=== PATIENT | female | born 1990 | race Caucasian/White ===

== ENCOUNTER 2017-06-10 00:39 | Inpatient (IN) | payer OTHER ==
[2017-06-10] VITALS (10 sets, daily range): BP systolic 88–138; BP diastolic 44–109; PULSE 105–140; RESP 28–46; O2SAT 91–97
[~2017-06-10] VITALS: Ht 162.6 cm; Wt 74.1 kg
[2017-06-10] MEDS ORDERED: 0.9% Sodium Chloride 1,000 ML IV ONE ×2 (01:25)
[2017-06-10] MEDS ORDERED: levoFLOXacin Inj 750 MG in IV Premix 1 EACH IV ONE (01:35)
[2017-06-10] MEDS ORDERED: Vancomycin Inj 1,500 MG in 0.9% Sodium Chloride 500 ML IV ONE (01:35)
[2017-06-10] MEDS ORDERED: Vancomycin Dose per Pharmacist XX ONE ×2 (01:35→04:05)
[2017-06-10] MEDS ORDERED: Piperacillin-Tazo 3.375 Gm Inj 3.375 GM in Dextrose 5% Minibag Plus 50 ML IV ONE (01:35)
[2017-06-10] MEDS ORDERED: HYDROmorphone 1 mg/mL Inj IVPUSH ONE ×2 (01:40→02:25)
[2017-06-10] MEDS ORDERED: HYDROmorphone 0.5 mg/0.5 mL iSecure Syringe IVPUSH ONE ×2 (01:40→02:25)
[2017-06-10 01:45] LABS: EOSINOPHILS % (AUTO) 0 % (0-5); Mean Corpuscular Hemoglobin 27.3 pg (27.0-35.0); Mean Corpuscular Volume 77.7 fL (81-100); Platelet Count 113 bil/L (150-400)
--- NOTE | 2017-06-10 02:05 | ED.REPORT ---
HPI-Dyspnea / Wheezing Date of Service Jun 10, 2017 ED Provider: Brenden Upton MD Pt is a 27 year old female with a hx of pneumonia, heart murmur and IV drug abuse presenting to the ED complaining of SOB and pain with inspiration onset 1 week ago progressively worsening. Associated symptoms include diffuse back pain , a fever, diaphoresis, chills, and a productive cough. Denies nausea or vomiting. The pain is exacerbated by movement. Pt has been living out of her car for the past little while. She denies being on antibiotics recently. Nursing Notes Stated Complaint: BACK PAIN,FEVER, DIFFICULT TO BREATH Chief Complaint: FLU/Cold Symptoms Nursing Notes Reviewed: Yes ([employer], meds not reconciled) Allergies: Coded Allergies: No Known Allergies (Unverified Allergy, Unknown, 06/10/17) General Time Seen by MD: 01:24 Chief Complaint Shortness of breath Hx Obtained From: Patient Arrived By: Walk-in Sudden in Onset?: No Onset Occurred: 1 week ago Symptom Duration: Since onset Location: : Back: Chest left: Chest right Quality: Painful Severity: Current: Severe Severity: Maximum: Severe Recent Healthcare: No recent doctor visit, No recent hospitalization Similar Sx Previous: No Past Medical History Past Medical History IVDA Pneumonia in the past Heart murmur Reports: Heroin use Past Surgical History denies Smoking History Current Every Day Smoker Social History Drug Use: IV drugs Ambulatory Status Independent Review of Systems Pain with inspiration. Constitutional: Reports: Chills, Fever Respiratory: Reports: Prod cough, clear, Shortness of breath Cardiovascular: Reports: Chest pain Musculoskeletal: Reports: Back pain Complete sys rev & neg: except as marked. GI: Denies: Nausea, Vomiting Physical Exam Initial Vital Signs Vital Signs (First) Date Time Temp Pulse Resp B/P Pulse Ox O2 Delivery O2 Flow Rate FiO2 06/10/17 00:41 37.8 140 28 120/82 91 Room Air Initial VS: Reviewed, Vital signs abnormal Head / Eyes: Atraumatic, Normocephalic, PERRL ENT: Mucous membranes moist, Conjunctiva normal, No scleral icterus Abdomen / GI: Soft, Non-tender, No guarding, No rebound, No distention Neurologic: Alert, Oriented, Nonfocal Psychiatric: Mood/affect normal, Behavior normal, Normal thought content General/Constitutional: Awake, Alert Distress / Hydration: Positive: Distress severe Appearance / Presentation: Positive: Cachectic, Pale Clinically ill, shaking with rigors. No clinical signs of intoxication or withdrawal. Neck: Atraumatic, Supple Respiratory / Chest: Atraumatic Tachypnic and dyspneic, taking short breaths. Scattered rhonchi. Cardiovascular: Regular rhythm Tachypnea and dyspnea are so that I am not able to hear her heart tones, although she does report that she has a murmur Skin: Warm, Dry, Intact Track de león upper and lower extremities. No signs of abscess. No splinter hemorrhages or Osler. Interpretation & Diagnostics Lab Results Interpretation Result Diagram: 06/10/17 0141 06/10/17 0141 Test 06/10/17 01:41 White Blood Count 12.3th/mm3 (3.8-10.1) Red Blood Count 3.55mil/mm3 (3.90-5.20) Hemoglobin 9.7g/dL (12.0-15.6) Hematocrit 27.6% (35.0-46.0) Mean Corpuscular Volume 77.7fL (81-100) Mean Corpuscular Hemoglobin 27.3pg (27.0-35.0) Mean Corpuscular Hemoglobin Concent 35.1% (32.0-37.0) Red Cell Distribution Width 17.1% (12.3-15.4) Platelet Count 113bil/L (150-400) Neutrophils (%) (Auto) 81% (40-74) Lymphocytes (%) (Auto) 7% (14-46) Monocytes (%) (Auto) 8% (4-12) Eosinophils (%) (Auto) 0% (0-5) Basophils (%) (Auto) 0% (0-3) Band Neutrophils % 4% (1-5) Hematology Comments Sodium Level 129mEq/L (134-144) Potassium Level 4.5mEq/L (3.5-5.2) Chloride Level 90mEq/L (97-108) Carbon Dioxide Level 22mmol/L (18-29) Blood Urea Nitrogen 20mg/dL (6-20) Creatinine 0.39mg/dL (0.57-1.00) Estimat Glomerular Filtration Rate 278mL/min (>59) Glucose Level 121mg/dL (60-99) Lactic Acid Level 1.3mmol/L (0.4-2.0) Calcium Level 8.1mg/dL (8.5-10.1) Magnesium Level 1.9mg/dL (1.6-2.6) Total Bilirubin 1.0mg/dL (0.0-1.2) Aspartate Amino Transf (AST/SGOT) 30U/L (0-50) Alanine Aminotransferase (ALT/SGPT) 8U/L (0-32) Alkaline Phosphatase 130U/L (25-150) Troponin T < 0.010ug/L (0.0-0.011) Total Protein 6.8g/dL (6.4-8.4) Albumin 2.4g/dL (3.4-5.0) Lab Results Interpretation: CBC positive leukocytosis, positive anemia CMP normal Lactic acid normal next and blood cultures 2 pending ECG Interpretation ECG Interpretation: Sinus tachycardia with a rate of 146. Non specific repolarization abnormality. Time: 01:24 Interpreted by: ED physician X-Ray Chest Interpretation Chest Xray Interpretation: Multi focal lesions concerning for multi focal pneumonia. View: Portable, 1 view Interpretation / Wet Read by: Wet read ED physician Procedures Central Line Placement Central Line Placement Note: line secured at 16 cm Time: 03:12 Procedure Performed by: ED physician Consent / Setup / Site Prep: Informed consent provided, Time-out performed, Oxygen administered, Pulse oximeter applied, monument setter helper applied, Hand hygiene observed, Standard surgical scrub, Max barrier precaution, Sterile drapes applied Skin Preparation Agent: Hibiclens - Chlorhexidine Local Anesthesia: Lidocaine 1% Side / Location / Ultrasound: Subclavian right Catheter / Lumen / Technique: Triple lumen, Seldinger technique, Good blood return, Secured w catheter device (STATLOCK) Central Line Tip Location: Cath tip good position in the SVC (16cm) Post-Procedure / Complications: Dressing placed, Condition improved, Tolerated procedure well, Patient stable Re-Eval/Medical Decision Med Decision/Clinical Course This is a 27-year-old female history of IV drug abuse who presents with chest discomfort cough, fever, chills, body aches and worsening over the past week. On arrival she is floridly septic, febrile, tachycardic, slightly low O2 sat, and appears quite ill. Chronic heart murmur, S few scattered rhonchi and I cannot really appreciate heart murmur on clinical exam as a result. She has no splinter hemorrhages or os nodes. She appears very uncomfortable and appears severely ill. No rash or exanthem or abscess is evident, but she does have track de león throughout. X-ray reveals multilobar pneumonia, presentation is highly concerning for bacteremia and the possibility of endocarditis is also present. Blood revealed e moderate leukocytosis, anemia-both also concerning for possible endocarditis. Broad-spectrum sepsis antibiotics are being initiated. The patient received multiple titrated pain medicine renal function being normal she received Tylenol, Tylenol, and IV fluids. She is clinically ill to the point that I recommended she see admission, and they have ultimately requested that I go ahead and place proactive central line. So ultimately this was done. Informed consent was obtained from the patient, under sterile conditions following routine precautions right subclavian triple-lumen was placed to 16 cm on the first pass following lidocaine analgesia and a chlorhexidine prep. Again the line was obtained on the first pass without any difficulty, follow-up chest x-ray demonstrates a minor adequate position with no calm location. Procedure was well tolerated. An echocardiogram for the morning as been obtained. Case is discussed with the hospitalist, ID consultation can also be obtained in the morning. Source of Hx: Old records Re-Evaluation/Progress : Time of Eval: 01:37 Patient Status: Condition improved Re-Evaluation/Progress Note: Discussed plan for admission. Pt understands and agrees with plan. Consultation : Referral / Consult Name: Cayetano Kincaid MD Consulted With: Hospitalist Call Returned at: 02:40 Typewriter Aligner: Will see patient, Agrees with plan, Accepts admit Differential Diagnosis: Positive: Pneumonia, Negative: COPD exacerbation, Cardiogenic shock, Foreign body airway, Inhalation injury Counseled Regarding: Diagnosis, Lab results, Need for admission Discharge & Departure Departure Notes r/o endocarditis Impression: Primary Impression: Sepsis Sepsis type: sepsis due to unspecified organism Qualified Code: A41.9 - Sepsis, unspecified organism Additional Impressions: Pneumonia Pneumonia type: due to unspecified organism Laterality: bilateral Lung location: unspecified part of lung Qualified Code: J18.9 - Pneumonia, unspecified organism IVDU (intravenous drug user) Disposition: ADMITTED TO HOSPITAL Discharge Condition All VS Reviewed: Yes Condition: Improved Referrals: Raffi Bonner MD (PCP) Crit Care Except Billable Proc Time Spent: 30-74 minutes Services Performed: Patient management by me, Time spent at bedside, Reviewing test results, Reviewing imaging, Discussing patient care, Documentation in record Scribe Attestation Portions of this note were transcribed by Irina Mead. I, Dr. Upton personally performed the history, physical exam and medical decision-making; I reviewed and confirmed the accuracy of the information in the transcribed note. Signed by: Salomon Lance, 06/10/2017. copies to: Raffi Bonner MD, Matthew F MD Jun 10, 2017 02:05 IRINA MEAD Jun 10, 2017 02:12 Jun 10, 2017 03:07
[2017-06-10 02:11] LABS: NEUTROPHILS % (AUTO) 81 % (40-74)
[2017-06-10 02:12] LABS: BASOPHILS % (AUTO) 0 % (0-3); MONOCYTES % (AUTO) 8 % (4-12)
[2017-06-10 02:32] LABS: Magnesium 1.9 mg/dL (1.6-2.6); TROPONIN T < 0.010 ug/L (0.0-0.011)
[2017-06-10] MEDS: HYDROmorphone 1 mg/mL Inj IVPUSH PRN ×3 (03:10→03:31)
[2017-06-10] MEDS ORDERED: HYDROmorphone 1 mg/mL Inj IVPUSH PRN (03:40)
[2017-06-10] MEDS ORDERED: Ondansetron 2 mg/mL 2 mL Inj IVPUSH PRN (04:05)
--- NOTE | 2017-06-10 04:20 | PCM.HPMED ---
Subjective Date of Service Jun 10, 2017 Primary Provider: Admitting Physician: Cayetano Kincaid MD Primary Care Physician: Raffi Bonner MD Attending Physician: Cayetano Kincaid MD Admit Status: From the Emergency Department Chief Complaint: Fever and chills with SOB and pain with inspiration History of Present Illness: Christa Buckner is a 27 year old woman with a PMH of heart murmur, chronic back pain with prior incomplete workup for MS, and Heroine use who presents to the ED with a 1-2 week history of increasing SOB with associated fevers and chills. The patient reports that for the past few weeks she has been living out of her car, and that after a long period of sobriety has relapsed back into heroine. She states that she has been exclusively injecting into the gluteus muscle and denies IVDU though there do appear to be track de león on her antecubital area. She denies nausea, vomiting, diarrhea, pain in her legs, hemoptysis, substernal chest pain, sick contacts, or pain at her injection sites. In the ED the patient was found to have low grade leukocytosis, mild anemia, a CXR indicative of pneumonia, and hypotension responsive to Fluids. She is in the process of trying to get a hold of her family to improve her living situation and get clean. She acknowledges that she probably should have sought medical attention at least a week ago. UTOX was positive for Opiates, Methamphetamine, TCAs, and Upreg was negative. Review of Systems: Comprehensive ROS negative except as listed above in the HPI. 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 Pneumonia Congenital heart murmur Heroin use Surgical History Inguinal hernia repair as a child Family History Father with multiple medical problems including DM, HTN, and CAD Social History Hx Alcohol Use: Yes Hx Substance Use: Yes (heroin) Smoking Status: Current Every Day Smoker Exam Vital Signs Vital Sign - Last Date Time Temp Pulse Resp B/P Pulse Ox O2 Delivery O2 Flow Rate FiO2 06/10/17 03:38 131 46 97/72 91 Nasal Cannula 3 06/10/17 00:41 37.8 Exam Gen: A/O x3 ill appearing young woman in moderate acute distress secondary to pain and fever Neck: Supple, Full ROM, no lymphadenopathy HEENT: PERRL, EOMI, no scleral icterus, no conjunctival pallor CV: Tachycardia with rate approx 120, regular rhythm, soft 2/6 systolic murmur best heard at right sternal border, no rubs or gallops Resp: Diffusely coarse breath sounds most focused in LLL, tachypnea, shallow breathing Abd: Soft, non tender, no rebound masses or guarding Extr: Track de león in upper and lower extremities, no calf or popliteal tenderness, no gluteal tenderness at reported injection site, no splinter hemorrhages or Osler nodes Neuro: CN 2-12 grossly intact, no focal neurologic deficit Psych: Patient is significant emotional and physical distress, expressing anxiety about hospitalization Lab and Diagnostics Labs Item Value Date Time Red Blood Count 3.55 mil/mm3 L 06/10/17140 Mean Corpuscular Volume 77.7 fL L 06/10/17140 Mean Corpuscular Hemoglobin 27.3 pg 06/10/17140 Mean Corpuscular Hemoglobin Concent 35.1 % 06/10/17140 Red Cell Distribution Width 17.1 % H 06/10/17140 Neutrophils (%) (Auto) 81 % H 06/10/17140 Lymphocytes (%) (Auto) 7 % L 06/10/17140 Monocytes (%) (Auto) 8 % 06/10/17140 Eosinophils (%) (Auto) 0 % 06/10/17140 Basophils (%) (Auto) 0 % 06/10/17140 Band Neutrophils % 4 % 06/10/17140 Estimat Glomerular Filtration Rate 278 mL/min 06/10/17140 Lactic Acid Level 1.3 mmol/L 06/10/17140 Calcium Level 8.1 mg/dL L 06/10/17140 Magnesium Level 1.9 mg/dL 06/10/17140 Total Bilirubin 1.0 mg/dL 06/10/17140 Alkaline Phosphatase 130 U/L 06/10/17140 Alanine Aminotransferase (ALT/SGPT) 8 U/L 06/10/17140 Troponin T < 0.010 ug/L 06/10/17140 Total Protein 6.8 g/dL 06/10/17140 Albumin 2.4 g/dL L 06/10/17140 Result Diagram: 06/10/1714006/10/17140 Microbiology Blood cultures pending Sputum cultures pending(note sputum culture was obtained after initiation of Abx in the ED) Urinalysis with reflex cultures pending X-Rays, CTs and MRIs Official read pending: Multifocal opacities suspicious for pneumonia 12-lead ECG Sinus Tachycardia with non specific repolarization abnormalities Assessment & Plan Christa Buckner is a 27 year old woman with a history of Heroin use currently living out of her car who presents with a 1-2 week history of increasing SOB, fevers and chills. She was admitted with Sepsis with likely pulmonary source and possible endocarditis. Sepsis, POA, acute. Active -Upon presentation patient with leukocytosis, tachycardia, tachypnea, fever, and likely pulmonary source -Cannot rule out endocarditis at the moment, this is a concern given drug use and anemia -Empiric Vanco, Zosyn, and Levofloxacin -ID consult in the AM -ECHO in the AM -Blood cultures x2 drawn prior to Abx, 2 more ordered given possibility of endocarditis or staph bacteremia -Sputum cultures drawn post Abx -MRSA screen pending -S.pneumo and legionella urine antigen pending -Initial Lactic Acid normal, will repeat -Patient hypotensive but responsive to fluid, will consider pressor if fluid proves inadequate to control pressure Possible Endocarditis, POA, acute. Active -Empiric antibiotics as above -Patient with congenital heart murmur -Patient claims to be exclusively muscling though there are track de león in upper and lower extremities -ECHO pending -Blood cultures pending Community acquired pneumonia, POA, acute. Active -Empiric antibiotics as above, will narrow with more culture data -IVF as above -Will repeat CXR tomorrow -Sputum culture and urine antigens pending Polysubstance abuse, POA, acute on chronic. Active -Patient states that she only recently relapsed after a long period of sobriety -As above patient claims to be exclusively muscling, but has track de león in upper and lower extremities -Patient claims to be exclusively using heroin, UTOX indicative of Meth and TCAs as well as Heroin -Social work referral for substance abuse counseling Chronic back Pain, POA. Active -Patient reports this is a longstanding issue -Prior history of incomplete workup for MS -Gabapentin has been effective for her in the past, will give 300 TID -Dilaudid PO for breakthrough pain and to avoid potential opiate withdrawal in acute phase of illness -Given the nature of her infection there is concern for epidural abscess, will defer to ID for decision whether or not to proceed with MRI Patient Status: Inpatient, anticipated length of stay > 2 midnights due to severity of condition and complexity of treatment plan. Pain Evaluation: Adequate Pain Control GI Prophylaxis: H2 demetrio VTE Prophylaxis: Sub-Q Enoxaparin Resuscitation Status: CPR: Attempt Resuscitation Time spent 50 minutes critical care time spend Attending Statement The patient was seen and examined together with Dr. Shankar on 06/10 and I agree with the history, exam and plan as outlined in the note above. Nilo Shankar DO Jun 10, 2017 04:20 Cayetano Kincaid MD Jun 10, 2017 06:57
[2017-06-10 04:40] LABS: APPEARANCE,URINE CLOUDY (CLEAR,HAZY); COLOR,URINE DARK YELLOW (YELLOW); OCCULT BLOOD,URINE TRACE (NEGATIVE); PH,URINE 5.5 (5.0-8.0)
[2017-06-10] MEDS: 0.9% Sodium Chloride 1,000 ML IV SCH ×9 (04:55→20:45)
[2017-06-10] MEDS ORDERED: Norepinephrine 8,000 mCg/250 mL NS Premix IV ONE (04:58)
--- NOTE | 2017-06-10 05:17 | PCM.CONPHA ---
Subjective Date of Service: Jun 10, 2017 Requesting Provider: Nilo Shankar DO Fever and chills with SOB and pain with inspiration Reason for Pharmacy Consult: Vancomycin Dosing Objective Vital Signs Date Time Temp Pulse Resp B/P Pulse Ox O2 Delivery O2 Flow Rate FiO2 06/10/17 04:43 128 34 97/44 92 Nasal Cannula 3 06/10/17 04:40 36.9 127 42 88/45 91 Nasal Cannula 3.00 06/10/17 03:38 131 46 97/72 91 Nasal Cannula 3 06/10/17 02:29 140 29 117/57 91 06/10/17 00:41 37.8 140 28 120/82 91 Room Air Weight (Kilograms): 68.18 Height (Feet): 5 Height (Inches): 4 Test 06/10/17 01:41 06/10/17 04:15 White Blood Count 12.3th/mm3 (3.8-10.1) Red Blood Count 3.55mil/mm3 (3.90-5.20) Hemoglobin 9.7g/dL (12.0-15.6) Hematocrit 27.6% (35.0-46.0) Mean Corpuscular Volume 77.7fL (81-100) Mean Corpuscular Hemoglobin 27.3pg (27.0-35.0) Mean Corpuscular Hemoglobin Concent 35.1% (32.0-37.0) Red Cell Distribution Width 17.1% (12.3-15.4) Platelet Count 113bil/L (150-400) Neutrophils (%) (Auto) 81% (40-74) Lymphocytes (%) (Auto) 7% (14-46) Monocytes (%) (Auto) 8% (4-12) Eosinophils (%) (Auto) 0% (0-5) Basophils (%) (Auto) 0% (0-3) Band Neutrophils % 4% (1-5) Hematology Comments Sodium Level 129mEq/L (134-144) Potassium Level 4.5mEq/L (3.5-5.2) Chloride Level 90mEq/L (97-108) Carbon Dioxide Level 22mmol/L (18-29) Blood Urea Nitrogen 20mg/dL (6-20) Creatinine 0.39mg/dL (0.57-1.00) Estimat Glomerular Filtration Rate 278mL/min (>59) Glucose Level 121mg/dL (60-99) Lactic Acid Level 1.3mmol/L (0.4-2.0) Calcium Level 8.1mg/dL (8.5-10.1) Magnesium Level 1.9mg/dL (1.6-2.6) Total Bilirubin 1.0mg/dL (0.0-1.2) Aspartate Amino Transf (AST/SGOT) 30U/L (0-50) Alanine Aminotransferase (ALT/SGPT) 8U/L (0-32) Alkaline Phosphatase 130U/L (25-150) Troponin T < 0.010ug/L (0.0-0.011) Total Protein 6.8g/dL (6.4-8.4) Albumin 2.4g/dL (3.4-5.0) Procalcitonin 1.84ng/mL (0.00-0.08) Urine Color Dark yellow (YELLOW) Urine Appearance Cloudy (CLEAR,HAZY) Urine pH 5.5 (5.0-8.0) Urine Specific [place] 1.015 (1.003-1.035) Urine Protein 30mg/dL (NEG,TRACE) Urine Glucose (UA) Negativemg/dL (NEGATIVE) Urine Ketones 15mg/dL (NEGATIVE) Urine Occult Blood Trace (NEGATIVE) Urine Nitrite Positive (NEGATIVE) Urine Bilirubin Negative (NEGATIVE) Urine Urobilinogen 1.0mg/dL (NORMAL) Urine Leukocyte Esterase Trace (NEGATIVE) Urine RBC 0-2/hpf (0-2) Urine WBC 6-10/hpf (0-5) Urine Epithelial Cells Few/hpf (NONE-MOD) Urine Crystals None seen (NONE SEEN) Urine Bacteria Moderate/hpf (NONE-FEW) Urine Hyaline Casts None/lpf (NONE) Urine Granular Casts None seen (NONE SEEN) Urine Waxy Casts None seen (NONE SEEN) Urine Red Blood Cell Casts None seen (NONE SEEN) Urine White Blood Cell Casts None seen (NONE SEEN) Urine Mucus None seen (None Seen) Urine Trichomonas None seen (NONE SEEN) Urine Yeast None (NONE SEEN) Urinalysis Comment None Urine Culture Reflexed Indicated Assessment/Plan Assessment/Plan A: * Vancomycin dosing by pharmacy for 27 y/o woman with sepsis, possible endocarditis, and CAP * She was given a vancomycin 1500 mg IV loading dose in the ED * The patient is also being started on Levaquin and Zosyn * Estimated CrCl for this patient is 120 mL/min (Cockcroft & Gault) * Estimated vancomycin half-life is 7 hours and estimated volume of distribution is 48 liters P: * Start vancomycin 1000 mg IV every 8 hours * Target a vancomycin trough in the range of 15 - 20 mcg/mL * Draw a trough level prior to the fourth dose Thank you. Pharmacy will continue to follow this patient. Sanam Lovell Jun 10, 2017 05:17
--- NOTE | 2017-06-10 06:25 | NUR ---
Admission Pt admitted to CCU room 201506/10/17 at 0450 this morning. Pt transported herself from the stretcher to the hospital bed by herself. Right Triple IJ CVC intact and infusing NS bolus, Vancomycin Abx. Pt hypotensive upon arrival, tachypnic, tachycardic, SpO2 85% on RA, moaning in pain 9/10 in her low back. Pt has bruises/de león all over her body from "muscling heroine" .Pt states last use was today and that she lives in her car and that a friend drove her car to help her get to the hospital. Norepinephrine gtt started to maintain MAP >65 after patient received a total of 5L NS fluid administration for hypotension. Fluid administration now at maintainance rate of 150ml/hour. MRSA swab and viral swab collected and sent to micro department.
[2017-06-10] MEDS: HYDROmorphone 0.5 mg/0.5 mL iSecure Syringe IVPUSH PRN ×4 (07:53→21:58)
[2017-06-10] MEDS ORDERED: Piperacillin-Tazo 3.375 Gm Inj 3.375 GM in Dextrose 5% Minibag Plus 50 ML IV SCH (08:30)
[2017-06-10] MEDS ORDERED: Vancomycin Dose per Pharmacist XX SCH (08:30)
--- NOTE | 2017-06-10 09:57 | CONS ---
[address] [address] CONSULTATION REPORT PATIENT: BLADIMIR SPENCER : 1990 MR#: [id number] ADMIT: 06/10/2017 JOB ID: [id number] INFECTIOUS DISEASE CONSULTATION: DATE OF SERVICE: 06/10/[address] Wilhelm for this timely consult. REASON FOR CONSULTATION: Septic shock in young, injection drug user. HISTORY OF PRESENT ILLNESS: The patient is a 27-year-old woman with scant past medical history. She knows that she had a heart murmur in the past and was told that she was infected with, but spontaneously resolved, hepatitis C. She also tells us she was hospitalized at [facility] a couple years ago, but has no recollection of why and we will need to obtain those records. She reports that she stopped using intramuscular heroin about two months ago and was clean for 60 days. She then developed the insidious onset of back pain which she initially describes as lumbar; though today, she seems indicated it is also higher in the back as well. Because of the back pain during this period of heroin abstinence, she started to inject IM heroin about a week ago for pain relief. These injections were into her right buttock. Subsequent to that, the patient started to develop gradually worsening shortness of breath. This was in association with a dry cough, headache, fever, chills and generalized malaise. The patient resides in a car and she tells us that in recent days, she has been too weak and short of breath to even get out of the car. 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 The lovelace parts of the history seem to be the onset of back pain a couple weeks ago which led to the relapse reportedly of her IM heroin use and then increasing shortness of breath with fever and chills for about the past week. Through this, she has had fairly minimal headache. No sore throat. No pain in the neck. No abdominal pain, nausea, vomiting, diarrhea, or dysuria nor any pain in the extremities. There has been no significant pain at the injection site in her buttocks. PAST MEDICAL HISTORY: 1. Heart murmur since childhood, by her report. 2. Hep C, reportedly spontaneously cured. 3. 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 SOCIAL HISTORY: The patient currently lives alone in her car. She is contemplating a move to [place] to have a more stable environment. She nonetheless is a lifelong resident of [facility], had been born here. She has had no exotic travel or exposures. She does smoke cigarettes, albeit not many. She does not drink alcohol. She uses methamphetamine and obviously heroin. FAMILY HISTORY: Negative for tuberculosis in first or second-degree relatives. REVIEW OF SYSTEMS: The patient has minimal headache. No visual complaints. No sore throat; though, she notes that her secretions or mucus is very thick because she is dehydrated. She has no stiff neck. No particular pain in the neck. She has pain both in her upper back, as well as her low back. The low back pain has been present for a couple of weeks, upper back much more recently. She is having considerable difficulty breathing and is very short of breath. She reports some pain with inspiration behind the sternum basically, but no unilateral pleuritic chest pain. She has minimal sputum production, if any, and is not really coughing much despite her profound shortness of breath. No nausea, vomiting, diarrhea, or abdominal pain. No dysuria, urgency, or frequency. No swelling of the joints. No notable skin rash. Remainder of the review of systems is negative. PHYSICAL EXAMINATION: Reveals a young woman who is struggling to breathe. Her current temperature is 36.7 earlier, but in the ED she was 37.8, so she has been afebrile. Pulse is currently 130 sinus tachycardia, respiratory rates 30-40 and very difficult respiratory status. She is not coughing however. Blood pressure is approximately 89/49, and that is supported by norepinephrine in moderate doses at about 0.1 mcg/kg/minute. She is saturating reasonably well, but requiring 5 L of nasal oxygen at this point. Examination of the head reveals no trauma or temporal wasting. Sinuses nontender. Eyes without conjunctivitis. Nose appears normal. Oral cavity has a lot of thick whitish mucus, but I did not see any logan candidiasis nor does she have pharyngitis or hairy leukoplakia. Her neck is supple. There is no tenderness along the sternocleidomastoid muscles as would be consistent with Lemierre's syndrome. Examining her back, she is diffusely tender when we sit her up and carefully press on each spine. This tenderness seems most pronounced at about C7 and again in the lumbar spine, but her whole spine seems somewhat tender. Auscultating her anteriorly and posteriorly, we hear scattered rales and rhonchi with really reduced air flow bilaterally surprisingly. Cardiac tones are very tachycardic, difficult to appreciate any murmur at this rate. Abdomen is completely soft, nontender. No organomegaly. No ascites. No suprapubic tenderness. She does have a Maya catheter. No external genital lesions are seen. Her extremities are free of edema. No synovitis. Excellent peripheral pulses, 5/5 strength throughout. She has an IV in her right IJ. LABORATORY DATA: Labs include a white count of 12,300, with left shift. Creatinine 0.39. Liver function tests normal. First procalcitonin 1.84. Albumin a bit low at 2.4. Urinalysis 6-10 white cells. Urine Legionella and pneumococcal urine antigens are pending. Blood cultures were just done seven hours ago and, of course, are negative so far. Nasal MRSA smear is pending. Urine culture is pending, though I am not sure why, as she has no symptoms. IMAGING PROCEDURE: Chest x-rays were carefully reviewed. Her chest x-ray shows scattered bilateral infiltrates and I sense that there may be some nodularity to this which could be consistent with septic pulmonary emboli from endocarditis and/or septic emboli from Lemierre's or some similar process. This could also represent, I suppose, just fluid overload or pulmonary edema. These are my impressions, although the chest x-ray has not been read yet by the radiologist. IMPRESSION: This patient is clearly critically ill at this point. She is on the edge of respiratory failure which will require intubation given her respiratory rate approaching of 40 and just profound dyspnea. In conjunction with this, she is in shock requiring moderately high doses of norepinephrine to support a physiologic blood pressure. The differential diagnosis for her septic shock and respiratory difficulty revolves around one of three or so possibilities. It is possible the patient is bacteremic and/or has endocarditis. It is likewise possible that she has more specifically right-sided endocarditis with septic pulmonary emboli. Lemierre's syndrome remains a possibility, though less likely because of the lack of tenderness in the neck. Also possible here would be a bacteremic infection of the back such as spinal epidural abscess or vertebral osteomyelitis with bacteremia. I do not see evidence at this point to suggest meningitis, sinusitis, any intra-abdominal infection, urinary tract infection or infection of the extremities. I failed to mention in the physical exam, but we carefully looked at the right buttock and there is bruising there consistent with injection, but absolutely nothing to concern one for soft tissue infection. RECOMMENDATIONS: 1. I agree with the multiple blood cultures which have been performed. 2. The patient has been started on vancomycin, Zosyn and levofloxacin in accordance with our protocol for septic shock and I see no problem with those agents at this point. 3. The patient's respiratory status will need to be very closely monitored as I suspect she will be intubated before the day is over unless the situation improves. 4. An echocardiogram is already pending and I agree with that. 5. I would workup possible pulmonary infiltrates with our usual studies which include the urine antigens, blood cultures, procalcitonin and MRSA screen, all of which is currently pending. 6. CT scan of the chest, preferably with contrast, should be done. This will allow us to better characterize these ill-defined infiltrates seen on the chest x-ray and if done appropriately, we can also evaluate for pulmonary embolism. As the patient tells us, for several days she has basically been sitting in a car. MRI scanning of the back would be reasonable, but there was no way the patient could tolerate that at this point, as she is literally struggling to breathe with a respiratory rate in the upper 30s to 40s and she cannot basically stay still. MRI scanning of the back would need to involve cervical, thoracic and lumbar scans and would likely take greater than one hour with the patient and the MRI tube and that would not be possible at this juncture. Should she develop positive blood cultures, we would need to make efforts, I believe, to perform such scanning, note that CT scanning of the back, to look for epidural abscess. It is specific, but not sensitive and prefer to get an MRI scan if at all possible as circumstances allow. 7. We should check her hep C antibody and hepatitis C viral load to confirm the story of spontaneously resolved hep C. 8. We should check hep B surface antigen, and HIV as part of health maintenance in this young woman. 9. We [facility] as the patient tells us she was hospitalized there two years ago, but cannot remember why. This may have a bearing on her current problems. Thank you very much for this consult.
--- NOTE | 2017-06-10 10:09 | DRSVH ---
PROCEDURE: X-RAY CHEST ONE VIEW, PORTABLE ([id number]) INDICATIONS: SHORT OF BREATH TECHNIQUE: One view of the chest was acquired. COMPARISON: None. FINDINGS: Surgical changes and devices: None. Lungs and pleura: No pleural effusions or pneumothorax. Lungs are abnormal with patchy alveolar inf iltration, with the patchy distribution having a rounded contour, each faintly marginated nodule havi ng a diameter of approximately 1-1.5 cm. Mediastinum: Mediastinal contours appear normal. Heart size is normal. Bones and chest wall: No suspicious bony lesions. Overlying soft tissues appear unremarkable. IMPRESSION: Septic emboli as the most likely etiology of the abnormality is discussed above. This is based on the information provided from the emergency room physician for this patient of SANG and deepa kelly. Dictated by: Sanjay Zeng M.D. on 06/10/2017 at 10:07 Approved by: Sanjay Zeng M.D. on 06/10/2017 at 10:08
[2017-06-10] MEDS ORDERED: Sodium Chloride LOK Flush 10 mL Syringe IVFLUSH PRN ×2 (10:10)
--- NOTE | 2017-06-10 10:15 | DRSVH ---
PROCEDURE: X-RAY CHEST ONE VIEW, PORTABLE ([id number]) INDICATIONS: CENTRAL LINE PLACEMENT TECHNIQUE: One view of the chest was acquired. COMPARISON: [facility], CR, XR CHEST 1VW (PORTABLE), 06/10/2017, 1:14. FINDINGS: Surgical changes and devices: Central line placed from right sided approach with tip overlying the ex pected region of the distal SVC considering reduced inspiration and patient rotation leftward. A pne umothorax is not found. Lungs and pleura: No pleural effusions or pneumothorax. Lungs are again seen to be abnormal with re duced inspiratory volume and patchy rounded radiodensities within the lung parenchyma highly suspicio us for representing septic emboli in the setting of IVDA and bacteremia. Mediastinum: Mediastinal contours appear normal. Heart size is normal. Bones and chest wall: No suspicious bony lesions. Overlying soft tissues appear unremarkable. IMPRESSION: Central line positioning normal, reduced inspiration, suspect septic emboli bilaterally w ithin the lung parenchyma. Dictated by: Sanjay Zeng M.D. on 06/10/2017 at 10:12 Approved by: Sanjay Zeng M.D. on 06/10/2017 at 10:14
[2017-06-10 10:25] LABS: BASOPHILS % (AUTO) 0.1 % (0-3); EOSINOPHILS % (AUTO) 0.2 % (0-5); MONOCYTES % (AUTO) 9.2 % (4-12); Mean Corpuscular Hemoglobin 27.4 pg (27.0-35.0); Mean Corpuscular Volume 78.2 fL (81-100); NEUTROPHILS % (AUTO) 85.2 % (40-74); Platelet Count 82 bil/L (150-400)
--- NOTE | 2017-06-10 10:56 | NUR ---
NUTRITION ASSESSMENT: ASSESS: Pt is a 27yo F admitted to CCU for sepsis and IVDA. She has been experiencing some respiratory difficulty and there is concern for endocarditis. ID is following. She is currently on a General diet. No PO recorded yet. PMHX: Perf esophagus, PNA, congenital heart murmur, IVD use, Hep C LABS: Reviewed. Na 129, Cl 90, product advisor .39, Glu 121, Ca 8.1, Alb 2.4 MEDS: Reviewed. Methadone, norepinephrine GI: 0 BM SKIN: no major issues CURRENT WTS: 68.7kg, BMI 26kg/m2, IBW: 54.5kg DIET: General EST. NEEDS: Kcals: 1720-2060kcal/day (25-30kcal/kg) Pro: 70-85g/day (1.0-1.2g/kg) NUTRITION DIAGNOSIS: 1.) No diagnosis at this time NUTRITION INTERVENTION: 1.) Will monitor PO intake. Pt does have a history of perforated esophagus so will monitor tolerance and possible need for ST eval MONITOR / EVAL: PO intake/tolerance, ST?, wt, gi, labs, POC, nutrition status. Will continue to monitor per moderate nutrition risk guidelines
[2017-06-10 10:58] LABS: Magnesium 1.6 mg/dL (1.6-2.6); Phosphorus 3.5 mg/dL (2.5-4.9)
--- NOTE | 2017-06-10 11:26 | PCM.PNMED ---
Subjective Date of Service Jun 10, 2017 Subjective She continues to be short of breath and have a lot of ongoing lumbar pain. Pain is bilateral without radiation. There is no leg weakness or numbness. She denies any abdominal pain or nausea. No real cough this morning. No hemoptysis. She denies any leg swelling. No diarrhea. Overnight events reviewed. Exam Vital Signs Vital Sign - Last Date Time Temp Pulse Resp B/P Pulse Ox O2 Delivery O2 Flow Rate FiO2 06/10/17 08:01 36.7 129 32 125/109 95 Nasal Cannula 5.00 Intake and Output 06/09/17 06/09/17 06/10/17 Cumulative From/Thru 15:00 23:00 07:00 06/10/17 00:41 - 06/10/17 06:19 Intake Total 2867 ml 2867 ml Output Total 50 ml 50 ml Balance 2817 ml 2817 ml Intake Oral 50 ml 50 ml IV Total 2817 ml 2817 ml Output Urine Total 50 ml 50 ml # Bowel Movements 0 0 Exam Alert and oriented -3, in moderate respiratory distress on high flow nasal cannula oxygen. Fluent speech. Anicteric sclera. Lungs are clear with increased regimen effort. Heart is regular without murmur gallop or rub, tachycardic Abdomen soft nontender, flat Extremities are free of edema. Skin is free of rash or lesions. Normal motor strength of lower extremities. IVs and Medications Medications Reviewed: Medications were reviewed in detail Lab and Diagnostics Result Diagram: 06/10/17 0141 06/10/17 0940 Microbiology Blood cultures pending Sputum cultures pending(note sputum culture was obtained after initiation of Abx in the ED) Urinalysis with reflex cultures pending X-Rays, CTs and MRIs Official read pending: Multifocal opacities suspicious for pneumonia 12-lead ECG Sinus Tachycardia with non specific repolarization abnormalities Assessment & Plan Christa Buckner is a 27 year old woman with a history of Heroin use currently living out of her car who presents with a 1-2 week history of increasing SOB, fevers and chills. She was admitted with Sepsis with likely pulmonary source and possible endocarditis. Sepsis, present on admission, acute. Active and ongoing. -Upon presentation patient with leukocytosis, tachycardia, tachypnea, fever, and likely pulmonary source -Cannot rule out endocarditis at the moment, this is a concern given drug use and anemia -Empiric Vanco, Zosyn, and Levofloxacin -ID consult in the AM -ECHO in the AM -Blood cultures x2 drawn prior to Abx, 2 more ordered given possibility of endocarditis or staph bacteremia She appears to have pneumonia. This is also represent tricuspid valve endocarditis with septic emboli. The plan is to continue antibiotics, await cultures. A CT with contrast of the lungs to rule out pulmonary embolism and further delineate her pulmonary abnormalities. Continue to clinically follow her back pain with the possibility of epidural abscess or discitis present. Possible Endocarditis, present on admission and active. -Empiric antibiotics as above -Patient with congenital heart murmur -Patient claims to be exclusively muscling though there are track de león in upper and lower extremities -ECHO pending -Blood cultures pending her infectious diseases been consulted and are following. Community acquired pneumonia, present on admission and acute. Active and stable -Empiric antibiotics as above, will narrow with more culture data -IVF as above -Will repeat CXR tomorrow -Sputum culture and urine antigens pending Acute respiratory failure with hypoxia, present on admission and active. -Continue high flow oxygen, nasal cannula and follow carefully. Polysubstance abuse, present on admission and active. -Patient states that she only recently relapsed after a long period of sobriety -As above patient claims to be exclusively muscling, but has track de león in upper and lower extremities -Patient claims to be exclusively using heroin, UTOX indicative of Meth and TCAs as well as Heroin -Social work referral for substance abuse counseling Follow closely for evidence of opiate withdrawal. We will also provide methadone 3 times a day dosing today. Chronic back Pain, was not on admission and active -Patient reports this is a longstanding issue -Prior history of incomplete workup for MS -Gabapentin has been effective for her in the past, will give 300 TID -Dilaudid PO for breakthrough pain and to avoid potential opiate withdrawal in acute phase of illness Patient Status: Inpatient, anticipated length of stay > 2 midnights due to severity of condition and complexity of treatment plan. GI Prophylaxis: H2 demetrio VTE Prophylaxis: Sub-Q Enoxaparin Resuscitation Status: CPR: Attempt Resuscitation Abraham Gary MD Jun 10, 2017 11:26
--- NOTE | 2017-06-10 12:08 | DRSVH ---
PROCEDURE: CT ANGIO CHEST PULMONARY EMBOLISM ([id number]) INDICATIONS: PE? TECHNIQUE: After the administration of intravenous contrast, 2 mm thick sections acquired from the pulmonary api veda to the posterior costophrenic angles. 3-dimensional maximum intensity projection (MIP) coronal a nd sagittal reformats were then acquired through the thorax. For radiation dose reduction, the follo wing was used: automated exposure control, adjustment of mA and/or kV according to patient size. COMPARISON: None. FINDINGS: Image quality: Severely degraded by motion artifact. Pulmonary arteries: A central filling defect is seen within the right lower lobe posterior segmental artery, image 78 series 5. This is not well evaluated due to excessive motion artifact. Lungs and pleura: Diffuse and widespread bilateral areas of consolidation and groundglass attenuation . Small bilateral pleural effusions. No pneumothorax. Mediastinum: Heart size is normal, without pericardial effusion. No mediastinal or hilar adenopathy . Thoracic aorta is normal in caliber and enhancement. Esophagus is normal in caliber, without hiat al hernia. Bones and chest wall: No suspicious bony lesions. Ribs and thoracic spine appear intact throughout. Thyroid gland negative. No axillary or supraclavicular adenopathy. Abdomen: Visualized upper abdominal solid organs appear normal in the early arterial phase of enhanc ement. IMPRESSION: Right lower lobe segmental pulmonary embolus. Evaluation suboptimal due to severe breathing motion ar tifact. Diffuse widespread bilateral areas of consolidation and groundglass attenuation in keeping with multi focal pneumonia. Cannot exclude developing ARDS/diffuse alveolar damage. Given the nodular appearance of some of these lesions, evolving septic emboli in the differential although no definite cavitation identified. Please correlate clinically. Small bilateral pleural effusions. Findings were personally telephoned and discussed with the patient's attending physician, Dr. Gary , approximately 1100 hrs. 06/10/17. Dictated by: Jonathan Coronado M.D. on 06/10/2017 at 10:04 Approved by: Jonathan Coronado M.D. on 06/10/2017 at 11:06
--- NOTE | 2017-06-10 12:26 | DRSVH ---
PROCEDURE: CT CERVICAL SPINE [facility] CONTRAST ([id number]) INDICATIONS: back pain and septic TECHNIQUE: After the administration of intravenous Isovue contrast, 3 mm thick sections acquired through the lev els of interest. Sagittal and coronal reformats were then constructed. For radiation dose reduction , the following was used: automated exposure control. COMPARISON: [facility], CT, CT ANGIO CHEST PE, 06/10/2017, 10:45. FINDINGS: Image quality: Excellent. Bones: No sclerotic or lytic lesions identified. Disc height is normally preserved at all visualized cervical and upper thoracic levels. No abnormal enhancement identified in the neck paraspinal soft ti ssues. No definite epidural abscess identified, however if there is clinical concern for epidural abs cess, MRI of the lumbar spine with and without contrast or be performed for further evaluation. Soft tissues: Scattered areas of consolidation noted in the lungs bilaterally compatible with known s eptic emboli. IMPRESSION: 1. No definite evidence of discitis-osteomyelitis. 2. No definite evidence of epidural abscess. 3. If there is continued clinical concern for epidural abscess or early discitis-osteomyelitis, an MR I of the spine with and without contrast should be performed for further evaluation. 4. Sequela septic emboli in the lungs bilaterally. Dictated by: Lenore Maurer MD, PhD on 06/10/2017 at 12:20 Approved by: Lenore Maurer MD, PhD on 06/10/2017 at 12:24
--- NOTE | 2017-06-10 12:33 | DRSVH ---
PROCEDURE: CT THORACIC SPINE WITH CONTRAST ([id number]) INDICATIONS: back pain and septic TECHNIQUE: After the administration of intravenous Isovue contrast, 3 mm thick sections acquired through the lev els of interest. Sagittal and coronal reformats were then constructed. For radiation dose reduction , the following was used: automated exposure control. COMPARISON: None. FINDINGS: Image quality: Excellent. Bones: No sclerotic or lytic lesions are identified in the Lasix spine. Thoracic spine disc space hei ght is normally preserved. Soft tissues: Patchy areas of nodular consolidation with central cavitation noted in the lungs bilate rally compatible with sequela of septic emboli. Small bilateral pleural fluid collections noted. No d efinite epidural abscess identified. There is slight prominence of the posterior right paraspinous so ft tissues relative to the left (series 7, images 52-71) which may represent congenital variants vers us infectious myositis. Presence of central venous catheter noted. IMPRESSION: 1. No definite evidence of discitis-osteomyelitis. 2. No definite epidural abscess. 3. Slight prominence of the right posterior paraspinal soft tissues the level of the mid thoracic spi ne which could represent congenital variants versus myositis. Recommend MRI of the spine with and wit hout contrast if clinically indicated. 4. Sequela of pulmonary septic emboli. 5. Small bilateral pleural fluid collections. Dictated by: Lenore Maurer MD, PhD on 06/10/2017 at 12:25 Approved by: Lenore Maurer MD, PhD on 06/10/2017 at 12:31
--- NOTE | 2017-06-10 12:37 | DRSVH ---
PROCEDURE: CT LUMBAR SPINE WITH CONTRAST ([id number]) INDICATIONS: back pain and septic TECHNIQUE: After the administration of intravenous Isovue contrast, 3 mm thick sections acquired through the lev els of interest. Sagittal and coronal reformats were then constructed. For radiation dose reduction , the following was used: automated exposure control. COMPARISON: None. FINDINGS: Image quality: Excellent. Bones: No lytic or sclerotic lesions identified. Intervertebral disc height is normally preserved. No fracture or subluxation. Soft tissues: No definite epidural abscess identified. Visualized paraspinal soft tissues are normal. No abnormal postcontrast enhancement in the visualized paraspinal soft tissues. IMPRESSION: 1. No definite evidence of discitis-osteomyelitis. 2. No definite evidence of epidural abscess. 3. If there is continued clinical concern for discitis-osteomyelitis or epidural abscess, then MRI of the spine with and without contrast should be performed for further evaluation. Dictated by: Lenore Maurer MD, PhD on 06/10/2017 at 12:31 Approved by: Lenore Maurer MD, PhD on 06/10/2017 at 12:35
[2017-06-10] MEDS ORDERED: Heparin 25K Unit/500mL 0.45 NS 25,000 UNIT in IV Premix 1 EACH IV SCH (12:40)
[2017-06-10] MEDS ORDERED: Vancomycin Inj 1,000 MG in IV Premix 1 EACH IV SCH (13:00)
--- NOTE | 2017-06-10 14:03 | PCM.CHPMED ---
Subjective Date of Service: Jun 10, 2017 Provider requesting consult: Hao Wilhelm DO Primary Physician: Admitting Physician: Cayetano Kincaid MD Primary Care Physician: Raffi Bonner MD Attending Physician: Abraham Gayr MD Chief Complaint: Chief Complaint: Fever, chills, back pain, generalized myalgias History of Present Illness: Pulmonary/Critical Care Consult Note Christa Buckner is a 27-year-old female with minimal past medical history aside from possible hepatitis C infection. She states over the last 24-48 hours she has had increasing low back pain along with fever, chills, and generalized malaise. Pain is described as a achy pain with some intermittent sharp pains. She states at its worst it was a 10 but currently it is a 4 out of 10. Pain does not radiate and she denies any lower extremity weakness, heaviness, or paresthesias. In my interview with the patient she denied any shortness of breath but for other physicians she noted significant shortness of breath and a productive cough. Patient admits to frequent heroin use. Last heroin injection was in her right buttocks approximately 2-3 days ago. She also recently used methamphetamine in the last month. She also intermittently smokes tobacco. Denies marijuana use. She does note some blurring of her vision although she notes this has occurred in the past when she is withdrawing from heroin. She was recently clean for 60 days secondary to being incarcerated. She states she previously has used methadone and found it beneficial. She currently is living out of her car but states she does have access to a bathroom and clean water at her friend's house. Patient denies any abdominal pain, dysuria, nausea, vomiting, palpitations, or headache. She denies any new skin finding such as rash or abscess and there is no pain or fluctuance surrounding her injection site. On presentation to the ED patient met criteria for septic shock with the likely source being pulmonary as her chest x-ray showed patchy opacifications. She was started on fluids and norepinephrine and responded appropriately. Broad- spectrum antibiotics were also started including levofloxacin, Zosyn, and vancomycin. Today the patient states she feels she is going through opioid withdrawal as she is extremely restless. She states she continues to have low back pain but this has improved over the last 12 hours. She denies any current shortness of breath although she is on 5 L nasal cannula with sats in the low 90s. Review of Systems: Comprehensive review of systems was conducted with the patient and found to be negative except as noted above in HPI. PMH Past Medical History Possible hepatitis C infection Polysubstance abuse Bedside Blood Glucose: 142 Home Medications None Allergies: Coded Allergies: No Known Allergies (Unverified Allergy, Unknown, 06/10/17) Family History Family History Significant cardiovascular history on her father's side. Breast cancer prevalent on mother's side. Social History Hx Alcohol Use: NoHx Substance Use: Yes (Heroine, methamphetamine)Hx Tobacco Use: Yes (intermittent) Smoking Status: Current Every Day Smoker Living Arrangement: Homeless (in her car) Exam Vital Signs Vital Sign - Last Date Time Temp Pulse Resp B/P Pulse Ox O2 Delivery O2 Flow Rate FiO2 06/10/17 12:18 36.6 105 31 107/68 96 Nasal Cannula 5.00 Intake and Output 06/09/17 06/09/17 06/10/17 Cumulative From/Thru 15:00 23:00 07:00 06/10/17 00:41 - 06/10/17 06:19 Intake Total 2867 ml 2867 ml Output Total 50 ml 50 ml Balance 2817 ml 2817 ml Intake Oral 50 ml 50 ml IV Total 2817 ml 2817 ml Output Urine Total 50 ml 50 ml # Bowel Movements 0 0 General: Alert, Oriented X3, Mild Distress Head: Normal Eyes: PERRLA, Scleral Anicteric Nose: Mucous Membr Moist/[place] Mouth: Mucous Membranes Dry Neck: Supple, No Thyromegaly Chest & Lungs: Chest Wall Normal, Diminished breath sounds (in the left lower lung field) Back, Sacral Area and Buttocks: Abnormal (pain to palpation of the lumbar spine ) Cardiovascular: Other (tachycardic with regular rhythm, no murmurs appreciated) Pulses: NL carotid, radial, femoral, DP, PT Abdomen: Non-tender, Non-distended, No hepatosplenomegaly, Normoactive bowel tones Genitourinary: Maya Present Musculoskeletal: Lumbar Spine (tender to palpation) Extremities: Other (cool) Neurological: Grossly Neurologically Intact, Cranial Nerves 2-12 Intact Lab and Diagnostics Result Diagram: 06/10/1740 06/10/17939 Assessment & Plan Assessment Christa Buckner is a 27-year-old female with minimal past medical history aside from possible hepatitis C infection. She states over the last 24-48 hours she has had increasing low back pain along with fever, chills, and generalized malaise. Admitted for septic shock. Severe sepsis with septic shock - Upon presentation patient with leukocytosis, tachycardia, tachypnea, fever, and likely pulmonary source vs endocarditis. - Empiric Vancomycin, Zosyn, and Levofloxacin - Blood cultures x2 drawn prior to Abx, 2 more ordered given possibility of endocarditis or staph bacteremia. - Pressure maintained with fluids and norepinephrine. Acute hypoxemic respiratory failure secondary to acquired pneumonia. - Chest x-ray and CT revealed significant bilaterally consolidations. - Antibiotics include Vancomycin, Levofloxacin and Zosyn. She received a dose of vancomycin on admission. - Blood and sputum cultures obtained and results pending. - Respiratory PCR panel, strep pneumonia, and legionella ordered and pending. - Supplemental oxygen as needed. - Repeat CBC and procalcitonin in the morning. Septic pulmonary emboli likely secondary to acute bacterial endocarditis. - Echocardiogram ordered and pending. - Antibiotics as above. - Further treatment pending echo results. Possible pulmonary embolism. - CT chest angio showed possible emboli but difficult to determine due to motion artifact. - Heparin drip per protocol. - LE doppler ordered and pending. Opioid withdrawal. - Methadone 15 mg 3 times a day. GI prophylaxis: Famotidine DVT prophylaxis: Heparin CODE STATUS: Full Problems: Pain Evaluation: Adequate Pain Control GI Prophylaxis: H2 demetrio VTE Prophylaxis: Sub-Q Enoxaparin Resuscitation Status: CPR: Attempt Resuscitation Attending Statement I have seen and examined this patient with the resident physician. Vital signs , labs, imaging have been reviewed. I agree with the assessment and plan above. Please refer to my separately dictated progress note for any modifications to above. Kaylee Coleman M.D. Pulmonary and Critical Care medicine Pager [phone] AZEB SAUNDERS DO Jun 10, 2017 14:03 Kaylee Coleman MD Jun 11, 2017 13:34
--- NOTE | 2017-06-10 14:07 | DRSVH ---
PROCEDURE: US VENOUS LEG DUPLEX BILATERAL INDICATIONS: concern for DVT TECHNIQUE: Real-time imaging, as well as color and pulse Doppler interrogation, were performed of the deep veins of both legs from the inguinal ligament to the popliteal fossa. COMPARISON: None. FINDINGS: The deep veins are normally compressible, and free of intraluminal thrombus. Color and pu lse Doppler demonstrate normal phasic intravascular flow. There is normal augmentation response to d istal compression maneuver. IMPRESSION: No DVT identified over either lower extremity. Dictated by: Sanjay Zeng M.D. on 06/10/2017 at 14:05 Approved by: Sanjay Zeng M.D. on 06/10/2017 at 14:05
[2017-06-10] MEDS ORDERED: Heparin 5,000 Unit/mL Inj IVPUSH ONE (14:15)
[2017-06-10] MEDS: Heparin 5,000 Unit/mL Inj IVPUSH PRN ×2 (14:19→19:39)
[2017-06-10] MEDS ORDERED: Vancomycin/500 mL NS IV ONE ×2 (14:25)
--- NOTE | 2017-06-10 14:30 | PCM.PHAPRO ---
Progress Fever, chills, back pain, generalized myalgias Vancomycin dosing; Therapy briefly discontinued for MRSA screen negativity. Suspicion of GP bacteremia prompts resuming. a/ Possible staph bacteremia p/ Reload with 1500mg for initial Cp of ~30, then 1g q8h for Cpmin target 15- 20mcg/mL Kvng Robertson S Pharm D Jun 10, 2017 14:30
--- NOTE | 2017-06-10 15:19 | NUR ---
Social Work: Attempted Assessment/Multidisciplinary Rounds D: SECURITY OPERATIONS CENTER ANALYST attempted to meet with patient at bedside to complete assessment. patient is very pleasant but states that she is not feeling up for an assessment or SECURITY OPERATIONS CENTER ANALYST visit at this time. Pt experiencing shortness of breath. Bedside RN aware. EMR reviewed, pt is a 27 year old female admitted for sepsis, IV Substance use. Patient has been very forthcoming about her substance use to [facility] staff. Pt reports to staff that she has been homeless living in her car. A: Pt who is I at baseline with IV Substance use P: Evolving; SECURITY OPERATIONS CENTER ANALYST to follow up with patient tomorrow to discuss discharge planning and services. YVONNE Joiner
--- NOTE | 2017-06-10 15:28 | DRSVH ---
[facility] [address] [place] [address] Echocardiogram Report Name: BLADIMIR SPENCER EStudy Date : 06/10/2017 Height: 64 in Hospital Exam Location: [facility] Weight: 151 lb Gender: Female BSA: 1.7 m2 : 1990 Age: 27 yrs BP: 109/72 mm Hg Reason For Study: Endocarditis Ordering Physician: HOSPITALIST [facility] Performed By: Emma Stubbs Referring Physician: Lauren Molina Interpretation Summary The ejection fraction is estimated to be 60-65%. Flattened septum is consistent with RV pressure/volume overload. There is a large vegetation on the tricuspid valve. 2.8x 1cm There is moderate tricuspid regurgitation. A pulmonic valvular vegetation cannot be excluded. Procedure: A two-dimensional transthoracic echocardiogram with color flow and Doppler was performed. The study quality was technically adequate. There is no prior echocardiogram noted for this patient. The patient was in sinus tachycardia with heart rates between 100-108 bpm during the exam. Left Ventricle: The left ventricle is normal in size, wall thickness, and systolic function without any focal wall motion abnormalities. The ejection fraction is estimated to be 60-65%. Flattened septum is consistent with RV pressure/volume overload. Right Ventricle: The right ventricle is mildly dilated. The right ventricular systolic function is normal. Atria: The left atrial size is normal. Right atrial size is normal. The interatrial septum is intact with no evidence for an atrial septal defect. Mitral Valve: The mitral valve is normal in structure and function. There is trace mitral regurgitation. Aortic Valve: The aortic valve is normal in structure and function. No aortic regurgitation is present. Tricuspid Valve: There is a large vegetation on the tricuspid valve. 2.8x 1cm. There is moderate tricuspid regurgitation. Pulmonic Valve: The pulmonic valve leaflets are thin and pliable; valve motion is normal. A pulmonic valvular vegetation cannot be excluded. Trace to mild pulmonic regurgitation. Great Vessels: The aortic root is normal size. The ascending aorta is normal in size. The aortic arch is normal in size. The pulmonary artery is normal size. The IVC is of normal diameter and collapses greater than 50% with a sniff. This suggests a low right atrial pressure of 3 mm Hg. Pericardium/ Pleura There is no pericardial effusion. There is no pleural effusion. MMode/2D Measurements & Calculations LVIDd: 5.0 cm RA long axis LVOT diam: 2.0 cm LVIDs: 3.8 cm LA A2 area: 14.7 cm AoV Opening FS: 23.9 % LA A4 area: 18.5 cm RA area EPSS: 1.1 cm LA length (vol) Ao root diam IVSd: 0.75 cm : 11.9 cm LVPWd: 0.69 cm LA vol: 40.5 ml RA vol Ao Arch Diam (Prox LA vol index : 24.3 ml Trans): 2.2 cm RA : 14.0 mm2 IVC diam: 2.0 cm LV oconnor. diameter/BSA LV sys. diameter/BSA RVD1 (basal) TAPSE: 2.4 cm (cm/m^2): 2.9 (cm/m^2): 2.2 Doppler Measurements & Calculations Ao V2 max MV E max aryan MV E/A: 511.8 TR max aryan : 150.3 cm/sec : 101.2 cm/sec Med Peak E' Aryan : 321.0 cm/sec Ao max P.0 mmHg MV A max aryan TR max PG Ao mean P.6 mmHg : 0.20 cm/sec E/E' med: 8.4 : 41.2 mmHg LVOT Max Aryan MV P1/2t: 84.8 msec Lat Peak E' Aryan : 116.6 cm/sec E/E' lat: 5.2 ARUN(I,D): 2.2 cm E/e' average: 6.8 sev ratio: 0.73 MV dec time: 0.28 secMV P1/2t max aryan Ao V2 mean LV V1 max PG : 102.3 cm/sec MVA(P1/2t): 2.6 cm2 Ao V2 VTI: 25.0 cm LV V1 VTI ARUN(V,D): 2.3 cm2 : 18.3 cm ARUN indexed to BSA (cm^2/m^2): 1.3 Electronically signed by: Vik Krishnamurthy on Reading Physician:06/10/2017 03:27 PM
--- NOTE | 2017-06-10 16:11 | CONS ---
[address] [address] CONSULTATION REPORT PATIENT: BLADIMIR SPENCER : 1990 MR#: [id number] ADMIT: 06/10/2017 JOB ID: [id number] DATE OF SERVICE: DATE OF SERVICE: 06/10/2017 PULMONARY CRITICAL CARE CONSULTATION NOTE: The patient is a 27-year-old woman with history of polysubstance and IV drug use seen in consultation at the request of Dr. Kiser for septic shock. The patient was seen and evaluated with resident physician, Pepper Donaldson. Please refer to her separate detailed note for additional information. The following is a brief attending note. HISTORY OF PRESENT ILLNESS: Briefly the patient is homeless, living in her car, using IV heroin and methamphetamine. She came into the emergency department with fever, chills, nonspecific respiratory symptoms and was found to be extremely hypotensive. She received 5+ L of IV fluid boluses and was placed on vasopressor. She is currently complaining of severe back pain primarily and asking for more pain medications. Past medical history, social history, family history, and review of systems as per separate detailed resident note. Also refer to resident note for detailed physical examination. Brief positive findings are below. Physical examination: Vital signs: T-max of 37.8, pulse tachycardic between 100 and 140. She is on 3-5 L nasal cannula. General: Lethargic but opens her eyes, follows commands. Chest: Clear. Heart: Regular rate, rhythm. No murmurs. Abdomen: Soft, nontender. No organomegaly. Extremities: No cyanosis, clubbing, edema. Skin: No rashes. LABORATORIES: Reviewed. WBC elevated 13.9. Chemistry reviewed. Potassium normal. Renal function is normal. Procalcitonin is elevated at 2. AST and total bilirubin are also slightly elevated. Micro cultures just came back 4/4 bottles positive for gram-positive cocci. IMAGING: Chest x-ray from admission shows bilateral diffuse multilobar infiltrates. CT of the chest, PE protocol, reviewed and shows poor quality images due to significant motion artifact from breathing. She has diffuse bilateral nodular areas of consolidation, a couple on the right have central cavitation in the right upper lobe and right lower lobe consistent with septic emboli. She also has areas of hypoperfusion in the spleen which could be splenic infarct. She also has filling defects in the right lower lobe segmental arteries which could be pulmonary embolism but there is also a lot of motion artifact in the image. ASSESSMENT AND RECOMMENDATIONS: 1. Gram-positive cocci bacteremia. 2. Septic shock. 3. Infective endocarditis. 4. Polysubstance abuse. 5. Multilobar pneumonia with septic emboli and cavitation. 6. Acute hypoxia. 7. Right lower lobe segmental pulmonary embolism. This 27-year-old woman with polysubstance and IV drug use is presenting with septic shock with gram positive cocci bacteremia and infective endocarditis with evidence of septic emboli. I am still waiting on a final read on her echocardiogram regarding size and additional details including the location of the vegetation. We may be dealing with a surgical indication for transfer to a facility with cardiothoracic surgery in this case. She is on low-dose norepinephrine despite fluid resuscitation. With the regards to antibiotics, she was on vancomycin, Zosyn and levofloxacin. Vancomycin was stopped because her MRSA nasal swab was negative but restarted based on the positive blood cultures until we know identification and sensitivities. She is on a heparin drip for her acute pulmonary embolism. At this point, there is no evidence of arrhythmias or QT prolongation, etc. We do have Infectious Disease involved in following the patient. They agree with current antibiotic therapy and did not recommend any changes at this point. CRITICAL CARE TIME: 60 minutes. DARIO
[2017-06-10] MEDS ORDERED: CeFAZolin Inj 2 gm / 50mL D5W IV SCH (16:30)
[2017-06-10] MEDS: CeFAZolin Inj 2 GM in IV Premix 1 EACH IV SCH (16:44)
--- NOTE | 2017-06-10 17:30 | NUR ---
Pain/Anxiety/Levo: c/o 06/07 pain to lower back, patient was given Dilaudid 1mg PO and became upset stating this isnt going to do anything. Cant I have something IV? MD notified of pt request for additional pain medication. Dilaudid 0.5mg IVP was ordered and administered at 0753. Patient continued to report significant back pain. pt was tachycardic HR 110-120 and tachypnic with RR mid 30s, pt was restless attempting to get out of bed, and very diaphoretic Im sick. I need something for my withdrawal or Im walking out of here". Methadone 15mg PO was ordered and administered just prior to going for CT Angiography and CT total spine. Patient became anxious this afternoon while being visited by a friend and requested additional pain medication. Ativan 1mg IVP was administered with good effect and patient was able to take as short nap. Levo gtt was titrated down from 0.09mcg/kg/hr to 0.01 to maintain MAP >65.
--- NOTE | 2017-06-10 20:43 | ABG ---
DateTimeAnalyzed 20:34:05 -_ pH ____7.420 - 7.350 7.450 pCO2 ___31.1__ -mmHg 35.0 45.0 pO2 ___67.8__ -mmHg 69.0 116 HCO3- ___20.1__ -mmol/L 22.0 26.0 ABE ___-3.9__ -mmol/L -2.0 2.0 tHb ___10.7__ -g/dL 12.0 18.0 O2Hb ___92.4__ -% COHb ____1.7__ -% 0.0 1.5 FIO2 ___50.0__ -% Drawn By MK - Date/Time Notified____ 20:43:00 -_ Liter_Flow ___30.00_ -L/min Oxygen Device 1 _Highflow - Notified By MK - K+ ____3.8__ -mmol/L 3.5 5.0 Abraham test _Positive -
[2017-06-10] MEDS: Vancomycin Inj 1,000 MG in IV Premix 1 EACH IV SCH (21:57)
[2017-06-10] MEDS ORDERED: Dexmedetomidine 400 mCg/100 mL 400 MCG in IV Premix 1 EACH IV SCH (22:40)
[2017-06-10] MEDS ORDERED: levoFLOXacin Inj 750 MG in IV Premix 1 EACH IV SCH (23:00)
[2017-06-11] VITALS (10 sets, daily range): BP systolic 101–118; BP diastolic 50–68; PULSE 102–129; RESP 25–44; O2SAT 96–98
[2017-06-11] MEDS: CeFAZolin Inj 2 GM in IV Premix 1 EACH IV SCH ×3 (00:32→17:30)
[2017-06-11] MEDS: Heparin 5,000 Unit/mL Inj IVPUSH PRN (01:17)
[2017-06-11 03:51] LABS: Mean Corpuscular Hemoglobin 26.9 pg (27.0-35.0); Mean Corpuscular Volume 78.9 fL (81-100); Platelet Count 89 bil/L (150-400)
[2017-06-11 04:07] LABS: INR 1.25 ratio
[2017-06-11 04:21] LABS: BASOPHILS % (AUTO) 0 % (0-3); EOSINOPHILS % (AUTO) 0 % (0-5); MONOCYTES % (AUTO) 7 % (4-12); NEUTROPHILS % (AUTO) 86 % (40-74)
[2017-06-11 04:22] LABS: Magnesium 1.8 mg/dL (1.6-2.6); Phosphorus 2.8 mg/dL (2.5-4.9)
[2017-06-11] MEDS ORDERED: Vancomycin Serum Trough XX ONE ×2 (04:30→13:30)
[2017-06-11] MEDS ORDERED: KCl 40 mEq/100 mL Premix (K 3 - 3.7 & Creat < 2) IV ONE (05:05)
[2017-06-11] MEDS ORDERED: Norepineph 8,000 mCg/250 mL NS 8,000 MCG in IV Premix 1 EACH IV SCH (05:49)
[2017-06-11] MEDS: 0.9% Sodium Chloride 1,000 ML IV SCH (05:51)
[2017-06-11] MEDS: Vancomycin Inj 1,000 MG in IV Premix 1 EACH IV SCH ×2 (05:52→15:55)
--- NOTE | 2017-06-11 06:10 | NUR ---
BP / HR / W/D symptoms Blood pressure decreases, Levophed required to be turned back on and titrated up. See flow sheet. HR maintaining the 140s, low grade fever during this point. MD notified of VS. Orders received to give 2 250ml boluses to determine if this increase BP, no change noted. MD aware. Patient anxious, moaning, shaking, sweating, complaining of severe pain. Medicated with PRN doses as able. MD notified and Precedex gtt is ordered. Started at lowest dose and patient is able to rest, much less anxious than previously. Patient is drowsy but wakes easily.
--- NOTE | 2017-06-11 07:15 | PCM.PNMED ---
Subjective Date of Service Jun 11, 2017 Subjective Pulmonary/Critical Care Consult Note Christa Buckner is a 27 year old woman with a history of Heroin use currently living out of her car who presents with a 1-2 week history of increasing SOB, fevers and chills. She was admitted with severe sepsis and septic shock secondary to bacterial endocarditis. Interval History Overnight the patient has had increasing oxygen needs. Currently requiring high flow oxygen and 45%. She was also started on procedure due to tachycardia and agitation. This morning when I go in to examine her she is very somnolent and difficult to arouse. Precedex is currently being titrated down and she is becoming more conversant. With the patient's grandmother and friend Beatrice in the room we discussed the recent results from both imaging studies and labs. Discussed that there is a high likelihood that she will need to be intubated. She is requested that her sister be her designated decision maker when/if she is unable to make her own decisions. Exam Vital Signs Vital Sign - Last Date Time Temp Pulse Resp B/P Pulse Ox O2 Delivery O2 Flow Rate FiO2 06/11/17 04:51 98 33 Nasal Cannula 30 45 06/11/17 03:46 36.7 104/52 97 Intake and Output 06/10/17 06/10/17 06/11/17 Cumulative From/Thru 15:00 23:00 07:00 06/10/17 00:41 - 06/11/17 06:08 Intake Total 2872 ml 3094 ml 8833 ml Output Total 1350 ml 675 ml 2075 ml Balance 1522 ml 2419 ml 6758 ml Intake Oral 600 ml 50 ml 700 ml IV Total 2272 ml 3044 ml 8133 ml Output Urine Total 1350 ml 675 ml 2075 ml # Bowel Movements 0 0 Exam Gen: Somnolent but alert and oriented 3. Ill appearing young woman in moderate distress. Neck: Supple, Full ROM, no lymphadenopathy HEENT: PERRL, EOMI, no scleral icterus, no conjunctival pallor. Right subclavian in place. CV: Tachycardia with rate approx 110, regular rhythm, soft 2/6 systolic murmur best heard at right sternal border, no rubs or gallops Resp: Diffusely coarse breath sounds most focused in LLL, tachypnea, shallow breathing Abd: Soft, non tender, no rebound masses or guarding Extr: Track de león in upper and lower extremities, no calf or popliteal tenderness, no gluteal tenderness at reported injection site, no splinter hemorrhages or Osler nodes Neuro: CN 2-12 grossly intact, no focal neurologic deficit Psych: Somnolent. Lab and Diagnostics Result Diagram: 06/11/17 0345 06/11/17 0345 Microbiology Blood cultures pending Sputum cultures pending(note sputum culture was obtained after initiation of Abx in the ED) Urinalysis with reflex cultures pending X-Rays, CTs and MRIs CT ANGIO CHEST PULMONARY EMBOLISM ([id number]) IMPRESSION: Right lower lobe segmental pulmonary embolus. Evaluation suboptimal due to severe breathing motion artifact. Diffuse widespread bilateral areas of consolidation and groundglass attenuation in keeping with multifocal pneumonia. Cannot exclude developing ARDS/diffuse alveolar damage. Given the nodular appearance of some of these lesions, evolving septic emboli in the differential although no definite cavitation identified. Please correlate clinically. Small bilateral pleural effusions. Findings were personally telephoned and discussed with the patient's attending physician, Dr. Gary, approximately 1100 hrs. 06/10/17. Dictated by: Jonathan Coronado M.D. on 06/10/2017 at 10:04 Approved by: Jonathan Coronado M.D. on 06/10/2017 at 11:06 ADDENDUM: The above study was reviewed with Dr. Chani Coleman on 06/10/17 at 12:30 PM. In addition to the above findings, there are several ill-defined areas of low attenuation within the spleen, partially obscured by artifact. These could represent areas of cyst or infarct. If clinical concern is present for abscess, ultrasound is recommended, as it is not well evaluated on the current examination. Dictated by: Soheila Yancey M.D. on 06/10/2017 at 20:35 Approved by: Soheila Yancey M.D. on 06/10/2017 at 20:37 US VENOUS LEG DUPLEX BILATERAL IMPRESSION: No DVT identified over either lower extremity. Dictated by: Sanjay Zeng M.D. on 06/10/2017 at 14:05 Approved by: Sanjay Zeng M.D. on 06/10/2017 at 14:05 Echocardiogram Report Study Date: 06/10/2017 Interpretation Summary The ejection fraction is estimated to be 60-65%. Flattened septum is consistent with RV pressure/volume overload. There is a large vegetation on the tricuspid valve. 2.8x 1cm There is moderate tricuspid regurgitation. A pulmonic valvular vegetation cannot be excluded. Electronically signed by: Vik Krishnamurthy on Reading Physician:06/10/2017 03:27 PM 12-lead ECG Sinus Tachycardia with non specific repolarization abnormalities Assessment & Plan Christa Buckner is a 27 year old woman with a history of Heroin use currently living out of her car who presents with a 1-2 week history of increasing SOB, fevers and chills. She was admitted with severe sepsis and septic shock secondary to bacterial endocarditis. Severe sepsis with septic shock. - Upon presentation patient with leukocytosis, tachycardia, tachypnea, fever, and likely pulmonary source vs endocarditis. - Empiric Vancomycin, Zosyn, and Levofloxacin initially started. Switch to vancomycin and cefazolin on 06/10/2017. - Blood cultures from 06/09/2017: 4 out of 4 bottles positive for suspected staph aureus awaiting final result. Repeat blood cultures drawn and sent. - Pressure maintained with fluids and norepinephrine. Decreasing needs for norepinephrine at this time. Bacterial endocarditis with septic pulmonary emboli. - Echocardiogram revealed large vegetation on the tricuspid valve measuring 2.8 x 1 cm long with septum consistent with RV pressure/volume overload. A pulmonic valvular vegetation cannot be excluded. - Blood cultures as above. - Antibiotics: Vancomycin and cefazolin. - CT chest showed significant load of septic pulmonary emboli along with an area of splenic hypoperfusion. - Abdominal ultrasound ordered to further evaluate splenic abnormality as well as the kidneys or possible embolic findings. - Infectious disease consulted. Appreciate time and recommendations. Acute hypoxemic respiratory failure. - Chest x-ray and CT revealed significant bilaterally subjective pulmonary embolisms. - Patient's oxygen needs have continued to increase. Currently on high flow nasal cannula. - Discussed with patient and grandmother that she will likely require intubation. - Respiratory PCR panel, strep pneumonia, and legionella all negative. Possible pulmonary embolism. - This time it is believed that these are likely septic emboli and therefore heparin drip is not standard therapy. - Heparin drip discontinued 06/11/2017. - Bilateral LE doppler showed no DVTs. Opioid withdrawal. - Methadone discontinued as patient's every 2 has prolonged from 404 to 480 this morning. - Oxycodone 5 mg 4 times a day. May require larger dose. - We will continue to monitor for signs of withdrawal. GI prophylaxis: Famotidine DVT prophylaxis: Heparin CODE STATUS: Full GI Prophylaxis: H2 demetrio VTE Prophylaxis: Sub-Q Enoxaparin Resuscitation Status: CPR: Attempt Resuscitation Attending Statement I have seen and examined this patient with the resident physician. Vital signs , labs, imaging have been reviewed. I agree with the assessment and plan above. Please refer to my separately dictated progress note for any modifications to above. Kaylee Coleman M.D. Pulmonary and Critical Care medicine Pager [phone] AZEB SAUNDERS DO Jun 11, 2017 07:15 Kaylee Coleman MD Jun 11, 2017 13:36
--- NOTE | 2017-06-11 09:59 | PROG NOTE ---
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 INTERVAL HISTORY: The patient continues to be critically ill. She has not been intubated, but she is on high-flow oxygen and has a very high respiratory rate. She also continues to be on vasopressor agents; though, these are gradually being weaned. This morning, the patient is sleepy, but arouses and is oriented and able to give some history. She surprisingly essentially denies all complaints this morning despite the fact she has an obvious respiratory rate in the low 40s. She specifically denies ongoing fevers, chills, headache, sore throat, pleuritic chest pain, shortness of breath which is at odds of course with her exam, as well as abdominal complaints. PHYSICAL EXAMINATION: Reveals a critically ill, young woman lying in the ICU. Temperature 36.7. She has been afebrile throughout this admission somewhat surprisingly. Pulse is approximately 100. Respiratory rate by my count 42. Blood pressure 104/52 on 0.04 mcg/kg/minute of norepinephrine. She is saturating well, but on high-flow nasal oxygen with a very high respiratory rate, as noted above. She arouses with some stimulation and stays awake for moments before going back to sleep. Her eyes without conjunctival hemorrhages or gross conjunctival abnormalities. Oral cavity unremarkable, except dry mucous membranes from her high respiratory rate. Her central line is present on the right side, looks benign. Lungs with scattered wheezes and a few crackles bilaterally. Cardiac tones are difficult to hear with so much lung sounds, but a regular rate and rhythm at least without any significant murmur. Abdomen soft, nontender. No peripheral edema at this point. No significant skin rash. LABORATORY DATA: Labs include a white count which has actually increased to 17.7 with a left shift. Platelet count is 89,000. Creatinine 0.4. LFTs are normal. Procalcitonin stable at 2 and now that we know that she is bacteremic and septic, I do not think that procalcitonin's are of particular value. Urinalysis with 6-10 white cells. Serologically, she is hepatitis C antibody positive and we await hep C quantitative viral load. HIV is pending as the first one was apparently canceled for some reason. Urine Legionella is negative. Micro studies include 4/4 blood cultures positive from admission for Staph aureus. Susceptibilities will be available tomorrow. MRSA PCR of the nose however is negative which makes it more likely that this is an MSSA infection. Nasopharyngeal PCR panel negative. Today's chest x-ray is truly impressive. It has not yet been formally read by the radiologist, but my reading would suggest the possibility of bilateral pleural effusions perhaps worse on the right, as well as diffuse pulmonary infiltrates encompassing all of both lung [place]. Compared to yesterday's chest radiograph, this is considerably worse. IMPRESSION: This is a critically ill, young woman with Staphylococcus aureus tricuspid valve endocarditis with the valve vegetation measured at 3 cm which is extraordinarily large. In association with this, she has innumerable septic pulmonary emboli, respiratory failure and ongoing septic shock. One bright spot is that she has not yet been intubated and she remains awake and able to answer questions appropriately. Also notable is her vasopressor requirements are actually diminishing a bit. Overall, her condition remains very tenuous. RECOMMENDATIONS: 1. Will continue with vancomycin and Ancef until tomorrow when we have the final identification of the Staph aureus organism. 2. Assuming this is MSSA, we can drop the Vanco tomorrow and proceed with Ancef alone. Once the patient has negative blood cultures, we can place a semi permanent PICC line and switch to nafcillin or oxacillin if needed. 3. I would consult Cardiology and ask whether transfer is appropriate given the extraordinary size of this vegetation as vegetation size is a soft criteria for valve replacement. Valve replacement may become necessary if she remains in shock regardless of the size of the vegetation. 4. Will continue to closely follow this complex patient with you and we also await her hep C and especially HIV serologies.
--- NOTE | 2017-06-11 11:15 | DRSVH ---
PROCEDURE: X-RAY CHEST ONE VIEW, PORTABLE ([id number]) INDICATIONS: septic emboli TECHNIQUE: One view of the chest was acquired. COMPARISON: [facility], CT, CT ANGIO CHEST PE, 06/10/2017, 10:45. [facility] , CR, XR CHEST 1VW (PORTABLE), 06/10/2017, 3:21. FINDINGS: Surgical changes and devices: Stable positioning of right subclavian CVL. Lungs and pleura: Interval increase in diffuse, widespread bilateral airspace patchy airspace opaciti es with more confluent opacities involving the lung bases on today's examination. Small pleural effu sions. No pneumothorax. Mediastinum: Mediastinal contours appear normal. Heart size is normal. Bones and chest wall: No suspicious bony lesions. Overlying soft tissues appear unremarkable. IMPRESSION: 1. Interval increase in diffuse, widespread bilateral pulmonary patchy airspace opacities when compar ed to prior examination in this patient with history of septic emboli. No definite cavitation identi fied by plain film at this time. 2. Small basilar pleural effusions. Dictated by: Bacilio Young RRA Interpreted: Lenore Maurer MD on 06/11/2017 at 10:10 Approved by: Lenore Maurer MD, PhD on 06/11/2017 at 11:11
--- NOTE | 2017-06-11 11:57 | PROG NOTE ---
[address] [address] PROGRESS NOTE PATIENT: BLADIMIR SPENCER : 1990 MR#: [id number] ADMIT: 06/10/2017 JOB ID: [id number] DATE: 06/11/2017 PULMONARY CRITICAL CARE PROGRESS NOTE: The patient was seen and evaluated with resident physician, Pepper Donaldson, please refer to her separate detailed note for additional information. The patient is a 27-year-old woman with polysubstance IV drug use presenting with septic shock, infective endocarditis. INTERVAL HISTORY: Respiratory status continues to worsen and she is now on 45% FiO2 with 35 L of oxygen. She remains on vasopressors although at a slightly lower dose than before of norepinephrine. Continues to have back pain. REVIEW OF SYSTEMS: No fever, chills, chest pain. She does have back pain. PHYSICAL EXAMINATION: Vital signs reviewed T-max 37.6, pulse 98, respirations 33, BP 104/52, and sats 97% on 45% FiO2 with 30 L on high-flow nasal cannula. General: Young woman lying in bed. She is tachypneic at rest, but alert answering questions. Chest coarse bilateral crackles. Abdomen soft nontender. Skin no rashes. LABORATORIES: Reviewed. Notable for WBC rising up to 17.7 from 13.9, hemoglobin 8.8, platelets 89. Chemistry also reviewed. Renal functions are normal. Procalcitonin has gone up slightly over the last couple of days to 2.1. Liver enzymes are normal. IMAGING: CT of the chest was reviewed and shows diffuse bilateral nodular areas of consolidation consistent with septic emboli. A few of these have central cavitation. There is also significant motion artifact, but there seemed to be areas of hypoperfusion in the spleen and also clots in the right lower lobe segmental vessels. Echocardiogram was positive for a 2.8 cm tricuspid vegetation and probable pulmonic valve vegetation. Blood cultures are positive 4/4 bottles for gram-positive cocci, probable Staph aureus, but identification still pending. ASSESSMENT AND RECOMMENDATIONS: 1. Septic shock. 2. Infective endocarditis with gram-positive cocci bacteremia. 3. Polysubstance abuse with intravenous methamphetamine and heroin. 4. Multilobar pneumonia with septic emboli and cavitation. 5. Acute hypoxic respiratory failure on high-flow nasal cannula at 45% FiO2. 6. Right lower lobe segmental pulmonary embolism likely with infected clot. A 27-year-old woman with polysubstance abuse with intravenous methamphetamine and heroin presenting with gram-positive cocci bacteremia, infective endocarditis with a 2.8 cm vegetation on the tricuspid valve as well as some involvement of the pulmonic valve, septic pulmonary emboli with cavitation. After discussion with Dr. Mancilla, we decided to stop the heparin anticoagulation because most likely the clot in her lungs is from her tricuspid valve vegetation and this really does not require anticoagulation, just antibiotics. She is on vancomycin and cefazolin which should cover Staph aureus including MRSA. Because of pulmonary involvement, we probably would avoid daptomycin at this point. Repeat blood cultures are pending at this time. She has surgical indication for valve replacement, but because of her history of intravenous drug use this may be a difficult option to pursue. Regardless we are going to consult Cardiology to see her and consider transfer to [facility] or other facility with cardiothoracic surgery. With regard to chronic opiate use and withdrawal, she has been on methadone, but I am concerned about her QT interval prolonging on this. It has gone up from 400 to 480 today. We are going to stop the methadone and look into scheduling oxycodone or some other option to prevent withdrawal. We are also looking at her meds and stopping anything that could cause QT prolongation. With regards to respiratory status, her x-ray looks worse today with worsening bibasilar atelectasis and consolidation likely because of progressive septic emboli and perhaps she is developing acute respiratory distress syndrome. At this point she seems to be holding her own on FiO2 45%, but I think there is a good chance she will need to be intubated in the coming day or two. Depending on the recommendations from Cardiology, I think we are looking at the very least attempting transfer to a facility with cardiothoracic surgery. I discussed all of this at the bedside with the patient in the presence of her grandmother and her friend, Beatrice. She was okay with both of these people being present for this conversation. She did indicate that she wants her sister to be her power of clam treader and not her mother who is technically legal next of kin. She was willing to sign a document to that effect, so we will try to make that happen. I did talk to her about goals of care, and she wants to be full code at this time. With regards to long-term issues and difficulty coming off the vent et cetera, she said to ask her legal decision maker at that point and she trusted her sister with this decision. She is a FULL CODE at this time. We will restart DVT prophylaxis since we stopped the heparin drip. Gastrointestinal prophylaxis is not indicated. CRITICAL CARE TIME: Ninety 90 minutes. SHAROND
[2017-06-11] MEDS ORDERED: 0.9% Sodium Chloride 1,000 ML IV SCH (14:40)
--- NOTE | 2017-06-11 15:52 | DRSVH ---
PROCEDURE: US ABDOMEN INDICATIONS: Endocarditis TECHNIQUE: Real-time scanning was performed of the abdominal and retroperitoneal organs, with image documentatio n. COMPARISON: None. FINDINGS: Liver length: 17.68 cm Gallbladder Wall Thickness: 2.10 mm CHD: 2.80 mm CBD: 4.40 mm Spleen length: 17.72 cm Right kidney length: 13.47 cm Left kidney length: 14.44 cm Aorta(Proximal): 1.51 cm Liver: Liver is normal in size and homogeneous in echotexture. Gallbladder: No gallstones identified. Normal gallbladder wall. No pericholecystic fluid. Negativ e sonographic Gonzales sign. Biliary ducts: Intrahepatic bile ducts are non-dilated. Extrahepatic bile duct caliber is normal. Normal is 6-7 mm or less in diameter, or 10 mm or less post-cholecystectomy. Pancreas: Visualized portions of the pancreas are sonographically normal. Spleen: Spleen is enlarged in size and homogeneous in echotexture. Kidneys: Kidneys are normal in size and echotexture. No hydronephrosis or nephrolithiasis. No lea d masses. Aorta: Visualized aorta is normal in caliber at less than 3 cm. Iliacs: Proximal common iliac arteries are normal in caliber at less than 2.5 cm. IVC: Intrahepatic inferior vena cava is patent. Miscellaneous: Trace perihepatic/perisplenic fluid as well as trace fluid within the inferior pelvis. Trace effusions. IMPRESSION: 1. Trace ascites and bilateral pleural effusions. 2. Sonographic splenomegaly. Dictated by: Bacilio OTERO Interpreted: Lenore Maurer MD on 06/11/2017 at 12:08 Approved by: Terrie Kenny M.D. on 06/11/2017 at 15:50
--- NOTE | 2017-06-11 15:55 | PCM.PNMED ---
Subjective Date of Service Jun 11, 2017 Subjective Pt is a 27-year-old polydrug user admitted for septic shock with blood culture 4 /4 staphylococcus, tricuspid vegetation, and septic emboli, currently on pressor support with high flow O2. Patient awake however sedated. Patient was placed on Precedex overnight for increasing agitation. Denies any chest or abdominal pain. Exam Vital Signs Vital Sign - Last Date Time Temp Pulse Resp B/P Pulse Ox O2 Delivery O2 Flow Rate FiO2 06/11/17 12:00 36.9 124 39 111/64 96 Nasal Cannula 60 06/11/17 09:00 30 Intake and Output 06/10/17 06/10/17 06/11/17 Cumulative From/Thru 15:00 23:00 07:00 06/10/17 00:41 - 06/11/17 06:08 Intake Total 2872 ml 3094 ml 8833 ml Output Total 1350 ml 675 ml 2075 ml Balance 1522 ml 2419 ml 6758 ml Intake Oral 600 ml 50 ml 700 ml IV Total 2272 ml 3044 ml 8133 ml Output Urine Total 1350 ml 675 ml 2075 ml # Bowel Movements 0 0 Exam General: Sedated, tachypneic HEENT: Normocephalic, atraumatic. PERRLA, EOMI, Anicteric sclerae Neck: No JVD, No bruits. No lymphadenopathy or thyromegaly. Cardiovascular: Tachycardic, regular rhythm, cannot appreciate any murmur rub or gallop Pulmonary: b/l air sound coarse throughout. Abdomen: +Bowel sound, Soft, nontender, nondistended. Extremities: No clubbing or cyanosis, no lymphedema, no b/l lower leg edema, right subclavian central line without erythema Skin: Normal temperature, turgor, and texture; no rash. No visualized skin ulcer. Neurological: CN II-VII grossly intact, moving equally on all 4 extremities Lab and Diagnostics Result Diagram: 06/11/17 0345 06/11/17 1000 Microbiology Blood cultures pending Sputum cultures pending(note sputum culture was obtained after initiation of Abx in the ED) Urinalysis with reflex cultures pending X-Rays, CTs and MRIs CT ANGIO CHEST PULMONARY EMBOLISM ([id number]) IMPRESSION: Right lower lobe segmental pulmonary embolus. Evaluation suboptimal due to severe breathing motion artifact. Diffuse widespread bilateral areas of consolidation and groundglass attenuation in keeping with multifocal pneumonia. Cannot exclude developing ARDS/diffuse alveolar damage. Given the nodular appearance of some of these lesions, evolving septic emboli in the differential although no definite cavitation identified. Please correlate clinically. Small bilateral pleural effusions. Findings were personally telephoned and discussed with the patient's attending physician, Dr. Gary, approximately 1100 hrs. 06/10/17. Dictated by: Jonathan Coronado M.D. on 06/10/2017 at 10:04 Approved by: Jonathan Coronado M.D. on 06/10/2017 at 11:06 ADDENDUM: The above study was reviewed with Dr. Chani Coleman on 06/10/17 at 12:30 PM. In addition to the above findings, there are several ill-defined areas of low attenuation within the spleen, partially obscured by artifact. These could represent areas of cyst or infarct. If clinical concern is present for abscess, ultrasound is recommended, as it is not well evaluated on the current examination. Dictated by: Soheila Yancey M.D. on 06/10/2017 at 20:35 Approved by: Soheila Yancey M.D. on 06/10/2017 at 20:37 US VENOUS LEG DUPLEX BILATERAL IMPRESSION: No DVT identified over either lower extremity. Dictated by: Sanjay Zeng M.D. on 06/10/2017 at 14:05 Approved by: Sanjay Zeng M.D. on 06/10/2017 at 14:05 Echocardiogram Report Study Date: 06/10/2017 Interpretation Summary The ejection fraction is estimated to be 60-65%. Flattened septum is consistent with RV pressure/volume overload. There is a large vegetation on the tricuspid valve. 2.8x 1cm There is moderate tricuspid regurgitation. A pulmonic valvular vegetation cannot be excluded. Electronically signed by: Vik Krishnamurthy on Reading Physician:06/10/2017 03:27 PM 12-lead ECG Sinus Tachycardia with non specific repolarization abnormalities Assessment & Plan Christa Buckner is a 27 year old woman with a history of Heroin use currently living out of her car who presents with a 1-2 week history of increasing SOB, fevers and chills. She was admitted with severe sepsis and septic shock secondary to bacterial endocarditis. Severe sepsis with septic shock. - Upon presentation patient with leukocytosis, tachycardia, tachypnea, fever, and likely pulmonary source vs endocarditis. - Empiric Vancomycin, Zosyn, and Levofloxacin initially started. Switch to vancomycin and cefazolin on 06/10/2017. - Blood cultures from 06/09/2017: 4 out of 4 bottles positive for suspected staph aureus awaiting final result. Repeat blood cultures drawn and sent. - Pressure maintained with fluids and norepinephrine. Decreasing needs for norepinephrine at this time. Bacterial endocarditis with septic pulmonary emboli. - Echocardiogram revealed large vegetation on the tricuspid valve measuring 2.8 x 1 cm long with septum consistent with RV pressure/volume overload. A pulmonic valvular vegetation cannot be excluded. - Blood cultures as above. - Antibiotics: Vancomycin and cefazolin. - CT chest showed significant load of septic pulmonary emboli along with an area of splenic hypoperfusion. - Abdominal ultrasound ordered to further evaluate splenic abnormality as well as the kidneys or possible embolic findings. - Infectious disease consulted. Appreciate time and recommendations. Acute hypoxemic respiratory failure. - Chest x-ray and CT revealed significant bilaterally subjective pulmonary embolisms. - Patient's oxygen needs have continued to increase. Currently on high flow nasal cannula. - Discussed with patient and grandmother that she will likely require intubation. - Respiratory PCR panel, strep pneumonia, and legionella all negative. Possible pulmonary embolism. - This time it is believed that these are likely septic emboli and therefore heparin drip is not standard therapy. - Heparin drip discontinued 06/11/2017. - Bilateral LE doppler showed no DVTs. Opioid withdrawal. - Methadone discontinued as patient's every 2 has prolonged from 404 to 480 this morning. - Oxycodone 5 mg 4 times a day. May require larger dose. - We will continue to monitor for signs of withdrawal. GI prophylaxis: Famotidine DVT prophylaxis: Heparin CODE STATUS: Full GI Prophylaxis: H2 demetrio VTE Prophylaxis: Sub-Q Enoxaparin VTE Mechanical Devices: Intermittant Pneumatic CD Resuscitation Status: CPR: Attempt Resuscitation Hao Wilhelm DO Jun 11, 2017 15:55
[2017-06-11] MEDS ORDERED: 0.9% Sodium Chloride 500 ML IV ONE (16:15)
[2017-06-11] MEDS ORDERED: Heparin 5,000 Unit/mL Inj SUBQ SCH (16:30)
--- NOTE | 2017-06-11 17:03 | PCM.DC.MED ---
Discharge Summary Date of Service Jun 11, 2017 Dates of Hospitalization Date of Hospital Admission Jun 10, 2017 at 02:54 Date of Discharge: Jun 11, 2017 Providers: Admitting Physician: Cayetnao Kincaid MD Primary Care Physician: Raffi Bonner MD Attending Physician: Abraham Gary MD Consultations Infectious Disease Pulmonary Critical Care Procedures XRay, CTs & MRIs PROCEDURE: CT CERVICAL SPINE WTIH CONTRAST ([id number]) INDICATIONS: back pain and septic FINDINGS: Image quality: Excellent. Bones: No sclerotic or lytic lesions identified. Disc height is normally preserved at all visualized cervical and upper thoracic levels. No abnormal enhancement identified in the neck paraspinal soft tissues. No definite epidural abscess identified, however if there is clinical concern for epidural abscess, MRI of the lumbar spine with and without contrast or be performed for further evaluation. Soft tissues: Scattered areas of consolidation noted in the lungs bilaterally compatible with known septic emboli. IMPRESSION: 1. No definite evidence of discitis-osteomyelitis. 2. No definite evidence of epidural abscess. 3. If there is continued clinical concern for epidural abscess or early discitis -osteomyelitis, an MRI of the spine with and without contrast should be performed for further evaluation. 4. Sequela septic emboli in the lungs bilaterally. Dictated by: Lenore Maurer MD, PhD on 06/10/2017 at 12:20 PROCEDURE: CT THORACIC SPINE WITH CONTRAST ([id number]) INDICATIONS: back pain and septic FINDINGS: Image quality: Excellent. Bones: No sclerotic or lytic lesions are identified in the [place] spine. Thoracic spine disc space height is normally preserved. Soft tissues: Patchy areas of nodular consolidation with central cavitation noted in the lungs bilaterally compatible with sequela of septic emboli. Small bilateral pleural fluid collections noted. No definite epidural abscess identified. There is slight prominence of the posterior right paraspinous soft tissues relative to the left (series 7, images 52-71) which may represent congenital variants versus infectious myositis. Presence of central venous catheter noted. IMPRESSION: 1. No definite evidence of discitis-osteomyelitis. 2. No definite epidural abscess. 3. Slight prominence of the right posterior paraspinal soft tissues the level of the mid thoracic spine which could represent congenital variants versus myositis. Recommend MRI of the spine with and without contrast if clinically indicated. 4. Sequela of pulmonary septic emboli. 5. Small bilateral pleural fluid collections. Dictated by: Lenore Maurer MD, PhD on 06/10/2017 at 12:25 PROCEDURE: CT LUMBAR SPINE WITH CONTRAST ([id number]) INDICATIONS: back pain and septic FINDINGS: Image quality: Excellent. Bones: No lytic or sclerotic lesions identified. Intervertebral disc height is normally preserved. No fracture or subluxation. Soft tissues: No definite epidural abscess identified. Visualized paraspinal soft tissues are normal. No abnormal postcontrast enhancement in the visualized paraspinal soft tissues. IMPRESSION: 1. No definite evidence of discitis-osteomyelitis. 2. No definite evidence of epidural abscess. 3. If there is continued clinical concern for discitis-osteomyelitis or epidural abscess, then MRI of the spine with and without contrast should be performed for further evaluation. Dictated by: Lenore Maurer MD, PhD on 06/10/2017 at 12:31 CT ANGIO CHEST PULMONARY EMBOLISM ([id number]) IMPRESSION: Right lower lobe segmental pulmonary embolus. Evaluation suboptimal due to severe breathing motion artifact. Diffuse widespread bilateral areas of consolidation and groundglass attenuation in keeping with multifocal pneumonia. Cannot exclude developing ARDS/diffuse alveolar damage. Given the nodular appearance of some of these lesions, evolving septic emboli in the differential although no definite cavitation identified. Please correlate clinically. Small bilateral pleural effusions. Findings were personally telephoned and discussed with the patient's attending physician, Dr. Gary, approximately 1100 hrs. 06/10/17. Dictated by: Jonathan Coronado M.D. on 06/10/2017 at 10:04 Approved by: Jonathan Coronado M.D. on 06/10/2017 at 11:06 ADDENDUM: The above study was reviewed with Dr. Chani Coleman on 06/10/17 at 12:30 PM. In addition to the above findings, there are several ill-defined areas of low attenuation within the spleen, partially obscured by artifact. These could represent areas of cyst or infarct. If clinical concern is present for abscess, ultrasound is recommended, as it is not well evaluated on the current examination. Dictated by: Soheila Yancey M.D. on 06/10/2017 at 20:35 Approved by: Soheila Yancey M.D. on 06/10/2017 at 20:37 US VENOUS LEG DUPLEX BILATERAL IMPRESSION: No DVT identified over either lower extremity. Dictated by: Sanjay Zeng M.D. on 06/10/2017 at 14:05 Approved by: Sanjay Zeng M.D. on 06/10/2017 at 14:05 Echocardiogram Report Study Date: 06/10/2017 Interpretation Summary The ejection fraction is estimated to be 60-65%. Flattened septum is consistent with RV pressure/volume overload. There is a large vegetation on the tricuspid valve. 2.8x 1cm There is moderate tricuspid regurgitation. A pulmonic valvular vegetation cannot be excluded. Electronically signed by: Vik Krishnamurthy on Reading Physician:06/10/2017 03:27 PM ECG 12 Lead Sinus Tachycardia with non specific repolarization abnormalities Cardiac Echo Impression Echocardiogram Report Reason For Study: Endocarditis Ordering Physician: [facility] Performed By: Emma Stubbs Referring Physician: Lauren Molina Interpretation Summary The ejection fraction is estimated to be 60-65%. Flattened septum is consistent with RV pressure/volume overload. There is a large vegetation on the tricuspid valve. 2.8x 1cm There is moderate tricuspid regurgitation. A pulmonic valvular vegetation cannot be excluded. Procedure: A two-dimensional transthoracic echocardiogram with color flow and Doppler was performed. The study quality was technically adequate. There is no prior echocardiogram noted for this patient. The patient was in sinus tachycardia with heart rates between 100-108 bpm during the exam. Left Ventricle: The left ventricle is normal in size, wall thickness, and systolic function without any focal wall motion abnormalities. The ejection fraction is estimated to be 60-65%. Flattened septum is consistent with RV pressure/volume overload. Right Ventricle: The right ventricle is mildly dilated. The right ventricular systolic function is normal. Atria: The left atrial size is normal. Right atrial size is normal. The interatrial septum is intact with no evidence for an atrial septal defect. Mitral Valve: The mitral valve is normal in structure and function. There is trace mitral regurgitation. Aortic Valve: The aortic valve is normal in structure and function. No aortic regurgitation is present. Tricuspid Valve: There is a large vegetation on the tricuspid valve. 2.8x 1cm. There is moderate tricuspid regurgitation. Pulmonic Valve: The pulmonic valve leaflets are thin and pliable; valve motion is normal. A pulmonic valvular vegetation cannot be excluded. Trace to mild pulmonic regurgitation. Great Vessels: The aortic root is normal size. The ascending aorta is normal in size. The aortic arch is normal in size. The pulmonary artery is normal size. The IVC is of normal diameter and collapses greater than 50% with a sniff. This suggests a low right atrial pressure of 3 mm Hg. Pericardium/ Pleura There is no pericardial effusion. There is no pleural effusion. MMode/2D Measurements & Calculations LVIDd: 5.0 cm RA long axis LVOT diam: 2.0 cm LVIDs: 3.8 cm LA A2 area: 14.7 cm AoV Opening FS: 23.9 % LA A4 area: 18.5 cm RA area EPSS: 1.1 cm LA length (vol) Ao root diam IVSd: 0.75 cm : 11.9 cm LVPWd: 0.69 cm LA vol: 40.5 ml RA vol Ao Arch Diam (Prox LA vol index : 24.3 ml Trans): 2.2 cm RA : 14.0 mm2 IVC diam: 2.0 cm LV oconnor. diameter/BSA LV sys. diameter/BSA RVD1 (basal) TAPSE: 2.4 cm (cm/m^2): 2.9 (cm/m^2): 2.2 Doppler Measurements & Calculations Ao V2 max MV E max aryan MV E/A: 511.8 TR max aryan : 150.3 cm/sec : 101.2 cm/sec Med Peak E' Aryan : 321.0 cm/sec Ao max P.0 mmHg MV A max aryan TR max PG Ao mean P.6 mmHg : 0.20 cm/sec E/E' med: 8.4 : 41.2 mmHg LVOT Max Aryan MV P1/2t: 84.8 msec Lat Peak E' Aryan : 116.6 cm/sec E/E' lat: 5.2 ARUN(I,D): 2.2 cm E/e' average: 6.8 sev ratio: 0.73 MV dec time: 0.28 secMV P1/2t max aryan Ao V2 mean LV V1 max PG : 102.3 cm/sec MVA(P1/2t): 2.6 cm2 Ao V2 VTI: 25.0 cm LV V1 VTI ARUN(V,D): 2.3 cm2 : 18.3 cm ARUN indexed to BSA (cm^2/m^2): 1.3 Electronically signed by: Vik Krishnamurthy on Reading Physician:06/10/2017 03:27 PM Brief History On admission HPI: Christa Buckner is a 27 year old woman with a PMH of heart murmur, chronic back pain with prior incomplete workup for MS, and Heroine use who presents to the ED with a 1-2 week history of increasing SOB with associated fevers and chills. The patient reports that for the past few weeks she has been living out of her car, and that after a long period of sobriety has relapsed back into heroine. She states that she has been exclusively injecting into the gluteus muscle and denies IVDU though there do appear to be track de león on her antecubital area. She denies nausea, vomiting, diarrhea, pain in her legs, hemoptysis, substernal chest pain, sick contacts, or pain at her injection sites. In the ED the patient was found to have low grade leukocytosis, mild anemia, a CXR indicative of pneumonia, and hypotension responsive to Fluids. She is in the process of trying to get a hold of her family to improve her living situation and get clean. She acknowledges that she probably should have sought medical attention at least a week ago. UTOX was positive for Opiates, Methamphetamine, TCAs, and Upreg was negative. Hospital Course Patient is a 27-year-old unfortunate female polydrug abuse presented with septic shock, found to have staphylococcal infection with tricuspid valve regurgitation and septic emboli, currently managed with antibiotics, pressors, and high flow O2. Blood cultures 4/4 possibly staphylococcal on first draw with repeat negative thus far today. Patient require higher care, including cardiothoracic surgery evaluation for possible valvular replacement. Patient will be transferred to [facility] with accepting physician Dr. Gleason. Severe sepsis with septic shock. - leukocytosis, tachycardia, tachypnea, fever, infective endocarditis. - Empiric Vancomycin, Zosyn, and Levofloxacin initially started. Switch to vancomycin and cefazolin on 06/10/2017. - Blood cultures from 06/09/2017: 4 out of 4 bottles positive for suspected staph aureus awaiting final result. Repeat blood cultures drawn and sent. - Support BP with norepinephrine 0.04 and bolus fluids. CVP 6. MAP 101. Positive 7L fluid balance -Right subclavian central line access Acute hypoxemic respiratory failure. - Chest x-ray and CT revealed significant bilaterally subjective pulmonary embolisms. - Respiratory PCR panel, strep pneumonia, and legionella all negative. - Patient's oxygen needs have continued to increase overnight -High Flow, FIO2 60% on 30L/min -Concerns for developing ARDS Infective endocarditis with septic pulmonary emboli. - Echocardiogram revealed large vegetation on the tricuspid valve measuring 2.8 x 1 cm long with septum consistent with RV pressure/volume overload. A pulmonic valvular vegetation cannot be excluded. - Blood cultures as above. - CT chest showed significant load of septic pulmonary emboli along with an area of splenic hypoperfusion. - Duplex legs negative for DVT, Abdominal ultrasound pending official read. - Antibiotics: Vancomycin and cefazolin. Opioid withdrawal. - Methadone discontinued as patient's every 2 has prolonged from 404 to 480 this morning. - Oxycodone 5 mg 4 times a day. May require larger dose. - Currently on dextomidate 0.05mcg/kg Nicotine dependent -Nicotine patch provided GI prophylaxis: Famotidine DVT prophylaxis: Heparin CODE STATUS: Full Exam Vital Signs (Last) Date Time Temp Pulse Resp B/P Pulse Ox O2 Delivery O2 Flow Rate FiO2 06/11/17 12:00 36.9 124 39 111/64 96 Nasal Cannula 60 06/11/17 09:00 30 Exam Gen: Somnolent but alert and oriented 3. Ill appearing young woman in moderate distress. Neck: Supple, Full ROM, no lymphadenopathy HEENT: PERRL, EOMI, no scleral icterus, no conjunctival pallor. Right subclavian in place. CV: Tachycardia with rate approx 110, regular rhythm, soft 2/6 systolic murmur best heard at right sternal border, no rubs or gallops Resp: Diffusely coarse breath sounds most focused in LLL, tachypnea, shallow breathing Abd: Soft, non tender, no rebound masses or guarding Extr: Track de león in upper and lower extremities, no calf or popliteal tenderness, no gluteal tenderness at reported injection site, no splinter hemorrhages or Osler nodes Neuro: CN 2-12 grossly intact, no focal neurologic deficit Psych: Somnolent. Test 06/10/17 01:41 06/10/17 04:15 06/10/17 09:40 06/10/17 13:30 Hematology Comments Troponin T < 0.010ug/L (0.0-0.011) Urine Color Dark yellow (YELLOW) Urine Appearance Cloudy (CLEAR,HAZY) Urine pH 5.5 (5.0-8.0) Urine Specific [place] 1.015 (1.003-1.035) Urine Protein 30mg/dL (NEG,TRACE) Urine Glucose (UA) Negativemg/dL (NEGATIVE) Urine Ketones 15mg/dL (NEGATIVE) Urine Occult Blood Trace (NEGATIVE) Urine Nitrite Positive (NEGATIVE) Urine Bilirubin Negative (NEGATIVE) Urine Urobilinogen 1.0mg/dL (NORMAL) Urine Leukocyte Esterase Trace (NEGATIVE) Urine RBC 0-2/hpf (0-2) Urine WBC 6-10/hpf (0-5) Urine Epithelial Cells Few/hpf (NONE-MOD) Urine Crystals None seen (NONE SEEN) Urine Bacteria Moderate/hpf (NONE-FEW) Urine Hyaline Casts None/lpf (NONE) Urine Granular Casts None seen (NONE SEEN) Urine Waxy Casts None seen (NONE SEEN) Urine Red Blood Cell Casts None seen (NONE SEEN) Urine White Blood Cell Casts None seen (NONE SEEN) Urine Mucus None seen (None Seen) Urine Trichomonas None seen (NONE SEEN) Urine Yeast None (NONE SEEN) Urinalysis Comment None Urine Culture Reflexed Indicated Urine Legionella pneumophilia Ag Negative (Negative) Lactic Acid Level 1.2mmol/L (0.4-2.0) Hepatitis C Antibody 1.1s/co ratio (0.0-0.9) Hepatitis C Comment . HIV (1&2) Ag and Ab, 4th Generation Non reactive (Non Reactive) Hold Purple Top Tube Received (Received) Hold Blue Top Tube Received (Received) Test 06/11/17 03:45 06/11/17 06:37 06/11/17 10:00 White Blood Count 17.7th/mm3 (3.8-10.1) Red Blood Count 3.27mil/mm3 (3.90-5.20) Hemoglobin 8.8g/dL (12.0-15.6) Hematocrit 25.8% (35.0-46.0) Mean Corpuscular Volume 78.9fL (81-100) Mean Corpuscular Hemoglobin 26.9pg (27.0-35.0) Mean Corpuscular Hemoglobin Concent 34.1% (32.0-37.0) Red Cell Distribution Width 17.2% (12.3-15.4) Platelet Count 89bil/L (150-400) Neutrophils (%) (Auto) 86% (40-74) Lymphocytes (%) (Auto) 5% (14-46) Monocytes (%) (Auto) 7% (4-12) Eosinophils (%) (Auto) 0% (0-5) Basophils (%) (Auto) 0% (0-3) Band Neutrophils % 2% (1-5) Prothrombin Time 13.4sec (8.1-12.5) Prothromb Time International Ratio 1.25ratio Sodium Level 140mEq/L (134-144) Chloride Level 108mEq/L (97-108) Carbon Dioxide Level 17mmol/L (18-29) Blood Urea Nitrogen 13mg/dL (6-20) Creatinine 0.40mg/dL (0.57-1.00) Estimat Glomerular Filtration Rate 270mL/min (>59) Glucose Level 115mg/dL (60-99) Calcium Level 7.1mg/dL (8.5-10.1) Phosphorus Level 2.8mg/dL (2.5-4.9) Magnesium Level 1.8mg/dL (1.6-2.6) Total Bilirubin 0.5mg/dL (0.0-1.2) Aspartate Amino Transf (AST/SGOT) 43U/L (0-50) Alanine Aminotransferase (ALT/SGPT) 12U/L (0-32) Alkaline Phosphatase 137U/L (25-150) Total Protein 4.9g/dL (6.4-8.4) Albumin 1.6g/dL (3.4-5.0) Procalcitonin 2.15ng/mL (0.00-0.08) Vancomycin Level Trough 14.7mcg/mL Activated Partial Thromboplast Time 55.3sec (22.8-33.0) Potassium Level 4.2mEq/L (3.5-5.2) Hold [place] Top Tube Received (Received) Microbiology Results Blood cultures pending Sputum cultures pending(note sputum culture was obtained after initiation of Abx in the ED) Urinalysis with reflex cultures pending Discharge Medications No Active Prescriptions or Reported Meds Followup Plan Disposition: Transfer to [facility] Time spent 60 min Attending Statement Patient was seen and examined with Dr Rucker. I participated in all aspects of medical care and coordination. Agree with all documentation. Patient is transferred to [facility] for possible tricuspid valve replacement. She remains septic with endocarditis. Hao Wilhelm DO Jun 11, 2017 17:03 Abraham Gary MD Jun 11, 2017 22:37
--- NOTE | 2017-06-11 18:21 | NUR ---
Transfer.. pt noted to be quite somnolent this am, requiring stimulous to awaken. Neurontin and po meds held until pt was more awake after having precedex weaned down. Has since c/o back pain. Is now on scheduled oxycodone and this has been effective. Noted to have a CVP of 6-[address] Coleman updated and 500cc NS bolus administered. Decision was made to contact cardiology at [facility] and they have accepted to have the pt transferred. ambulance will be here around 1944 for transfer. Family updated and have taken her belongings other than her cell phone which she will be taking in the ambulance. Pt noted to have increasing anxiety this afternoon, carrying on conversations with her mother which upset her. She is very worried about her car which is what she lives in. Pt reassured that friends will be taking care of this for her. Noted to be more tachycardic and tachypnic with RR in the 40's. Dr Donaldson present at the bedside. Pt med with Ativan and her scheduled oxycodone and her VS have improved.
[2017-06-11] MEDS: HYDROmorphone 0.5 mg/0.5 mL iSecure Syringe IVPUSH PRN (19:43)
--- NOTE | 2017-06-11 20:26 | NUR ---
Transfer Note On highflow 02 30L/60%, sp02 >94%, HR 123-124 ST, SBP 114/49 mmhg, Rt SC TLC with NS @ 80 cc/hr, precedex @ 0.05, levophed @ 0.04 mcg/kg/min. Maya in place & patent. Pt drowsy, c/o back pain 7-8, medicated with dilaudid 0.5mg IVP. Sister Cookie and mother at bedside. All personal belongings sent with patient. Patient transferred out of CCU to [facility] CCU direct admit to [place] [id number]. Pt left @ 2019 via [place] [facility], [facility] transport w/ [facility]. Report called to receiving DANIEL Hernandez @ Prov.
[2017-06-15 09:09] LABS: Hepatitis A Antibody IgM Negative (Negative); Hepatitis B Core Antibody IgM Negative (Negative)
== END 2017-06-11 20:20 | disposition short-term general hospital (02) | DRG 871 ==
LOC: SED 02:40 → PCC 02:54 → CCU 05:06
PROVIDERS: ADMIT Hospitalist; ATTEND Hospitalist
PROC: 02HV33Z Insertion of Infusion Device into Superior Vena Cava, Percutaneous Approach (ICD-10-PCS; principal; 2017-06-10)
DX: A41.01 Sepsis due to Methicillin susceptible Staphylococcus aureus (principal); J96.01 Acute respiratory failure with hypoxia; I26.90 Septic pulmonary embolism without acute cor pulmonale; J18.9 Pneumonia, unspecified organism; I33.0 Acute and subacute infective endocarditis; R65.21 Severe sepsis with septic shock; F11.23 Opioid dependence with withdrawal; B95.61 Methicillin susceptible Staphylococcus aureus infection as the cause of diseases classified elsewhere; M54.5 Low back pain; G89.29 Other chronic pain; Z59.0 Homelessness; F17.210 Nicotine dependence, cigarettes, uncomplicated; F15.10 Other stimulant abuse, uncomplicated